=== PATIENT | female | born 1965 | race Caucasian/White ===

== ENCOUNTER 2021-03-30 10:43 | Outpatient (CLI) | payer BC, SELFPAY ==
--- NOTE | ~2021-03-30 | XR_ITS ---
EXAMINATION: XR finger 1st RT min 2V EXAM DATE: 03/30/2021 12:11 INDICATION: No known recent injury provided at this time. Pain of the thumbs, right more than left. TECHNIQUE: Right thumb frontal, lateral and oblique projections obtained and reviewed. Correlation i s made to contralateral thumb same date. FINDINGS: There is minimal right interphalangeal and metacarpophalangeal joint primary osteoarthritis . There are no bony erosions identified. There are no acute fractures or dislocations identified. There is no subcutaneous gas. The soft tissue is unremarkable. There are no radiopaque foreign tay dies. 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 Reviewed, dictated and finalized at location B.
--- NOTE | ~2021-03-30 | XR_ITS ---
EXAMINATION: XR finger 1st LT min 2V EXAM DATE: 03/30/2021 12:11 INDICATION: No known recent injury provided at this time. Pain of the thumbs right more than left. TECHNIQUE: Left 1st finger frontal, lateral and oblique projections obtained and reviewed. Correlati on is made to contralateral thumb same date. FINDINGS: There are no bony erosions identified. There are no acute left 1st finger fractures or dis locations identified. There is no subcutaneous gas. The soft tissue is unremarkable. There are no radiopaque foreign bodies. There is minimal left 1st interphalangeal primary osteoarthritis. IMPRESSION: Minimal left 1st interphalangeal osteoarthritis. Reviewed, dictated and finalized at location B.
[2021-03-30 19:03] LABS: Hemoglobin 13.7 g/dL (12.0-15.0); Mean Corpuscular HGB Conc 30.4 g/dl (32-36); Mean Corpuscular Hemoglobin 27.7 pg (26-34); Mean Corpuscular Volume 90.9 fl (80-100); Mean Platelet Volume 9.5 fl (7.4-10.4); Platelet Count Result 357 k/mm3 (150-375); Red Blood Count 4.95 M/mm3 (4.2-5.4); Red Cell Distribution Width 13.7 % (11.5-14.5); White Blood Count 8.8 K/mm3 (4.5-10.0)
[2021-03-30 19:13] LABS: Alanine Aminotransferase 30 U/L (4-35); Albumin Level 4.3 g/dL (3.5-5.1); Alkaline Phosphatase 101 U/L (38-126); Anion Gap 9 mmol/L (8-16); Aspartate Amino Transferase 27 U/L (14-36); Bilirubin,Total 0.6 mg/dL (0.2-1.3); Blood Urea Nitrogen 13 mg/dL (7-17); Calcium 9.5 mg/dL (8.4-10.2); Carbon Dioxide 28 mmol/L (22-30); Chloride 100 mmol/L (98-107); Estimated Glomerular Filt Rate > 60; Glucose 137 mg/dL (65-110); Sodium 137 mmol/L (137-145)
[2021-03-30 19:56] LABS: Hemoglobin A1C 7.2 % (<5.7)
== END 2021-03-30 10:44 | disposition home or self-care (01) ==
LOC: ANHBWCLAB 10:48
PROVIDERS: PCP Family Medicine; Visit Provider Family Medicine
DX: M19.90 Unspecified osteoarthritis, unspecified site (principal); E66.3 Overweight; K21.9 Gastro-esophageal reflux disease without esophagitis; J45.909 Unspecified asthma, uncomplicated; T78.40XA Allergy, unspecified, initial encounter; M18.0 Bilateral primary osteoarthritis of first carpometacarpal joints
CPT/HCPCS: 36415; 73140; 80053; 82607; 83036; 85027

== ENCOUNTER 2021-04-06 10:39 | Outpatient (CLI) | payer BC, SELFPAY ==
[2021-04-06 20:02] LABS: Cholesterol 227 mg/dL (0-200); HDL Direct 48 mg/dL; Triglycerides 89 mg/dL (<150)
[2021-04-06 20:13] LABS: LDL Cholesterol Direct 137 mg/dL
[2021-04-06 21:12] LABS: Hemoglobin A1C 7.2 % (<5.7)
== END 2021-04-06 10:40 | disposition home or self-care (01) ==
LOC: ANHBWCLAB 10:40
PROVIDERS: PCP Family Medicine; Visit Provider Family Medicine
DX: R73.09 Other abnormal glucose (principal); E66.3 Overweight; J45.909 Unspecified asthma, uncomplicated; K21.9 Gastro-esophageal reflux disease without esophagitis; M19.90 Unspecified osteoarthritis, unspecified site; T78.40XA Allergy, unspecified, initial encounter; Z76.89 Persons encountering health services in other specified circumstances
CPT/HCPCS: 36415; 80061; 83036

== ENCOUNTER 2021-07-07 09:13 | Outpatient (CLI) | payer BC, SELFPAY ==
[2021-07-07 19:08] LABS: Creatinine Urine 29.1 mg/dL
[2021-07-07 19:18] LABS: MALB Creatinine Ratio < 20.6 mg/g (0-30); Microalbumin Urine Random < 6.0 mg/L (0-16.7)
[2021-07-07 21:17] LABS: Hemoglobin A1C 6.3 % (<5.7)
== END 2021-07-07 09:14 | disposition home or self-care (01) ==
LOC: ANHBWCLAB 09:14
PROVIDERS: PCP Family Medicine; Visit Provider Family Medicine
DX: E11.9 Type 2 diabetes mellitus without complications (principal)
CPT/HCPCS: 36415; 82043; 83036

== ENCOUNTER 2021-07-07 10:30 | Outpatient (RCR) | payer BC, SELFPAY ==
[2021-05-17 11:09] VITALS: BMI 41.5
[2021-05-17 11:11] VITALS: BMI 41.5
== END 2021-08-05 11:18 | disposition home or self-care (01) ==
LOC: ANHDMC 10:30
PROVIDERS: PCP Family Medicine; Visit Provider Family Medicine
DX: E11.9 Type 2 diabetes mellitus without complications (principal); Z71.3 Dietary counseling and surveillance; Z71.89 Other specified counseling
CPT/HCPCS: 97804; G0108

== ENCOUNTER 2021-08-04 09:45 | Outpatient (CLI) | payer BC, SELFPAY | END 2021-08-04 09:46 | disposition home or self-care (01) | LOC: ANHBWCLAB 09:47 | PROVIDERS: PCP Family Medicine; Visit Provider Obstetrics & Gynecology | DX: N92.0 Excessive and frequent menstruation with regular cycle (principal) | CPT/HCPCS: 36415; 84443 ==

== ENCOUNTER 2021-08-12 09:27 | Outpatient (CLI) | payer BC, SELFPAY ==
--- NOTE | ~2021-08-12 | US_ITS ---
EXAMINATION: US pelvic complete w TV EXAM DATE: 08/12/2021 10:23 INDICATION: N92.6 - Irregular menstruation, unspecified. TECHNIQUE: Pelvic transabdominal and transvaginal sonogram was performed. There are multiple graysca le and Doppler images available for interpretation. There is no prior study for comparison. FINDINGS: Uterus measures 16.7 x 11.3 x 10.1 cm, with a large hypoechoic mass demonstrating internal vascularity, measuring 8.7 x 9.0 x 6.8 cm. This appears focal and could be a large centrally positio radhika fibroid, but is also obscuring the endometrium and endometrial polyp or malignancy not excludable . Several nabothian cysts noted. There is no free pelvic fluid. Right adnexa: The ovary is not identified. There is no adnexal mass. Left adnexa: The ovary is not identified. There is no adnexal mass. IMPRESSION: Enlarged uterus with central hypoechoic mass which could be submucosal or pedunculated fi broid within the endometrial cavity, or possibly endometrial histology such as large polyp or endomet rial cancer. Consider MRI pelvis with and without contrast for further evaluation. Reviewed, dictated and finalized at location A. URES EDITOR IMPRESSION: Enlarged uterus with central hypoechoic mass which could be submuco kamron or pedunculated fibroid within the endometrial cavity, or possibly endometr ial histology such as large polyp or endometrial cancer. Consider MRI pelvis wi th and without contrast for further evaluation.
== END 2021-08-12 09:28 | disposition home or self-care (01) ==
PROVIDERS: PCP Family Medicine; Visit Provider Obstetrics & Gynecology
DX: N92.0 Excessive and frequent menstruation with regular cycle (principal); R93.89 Abnormal findings on diagnostic imaging of other specified body structures
CPT/HCPCS: 76830; 76856

== ENCOUNTER 2021-09-08 12:10 | Outpatient (CLI) | payer BC, SELFPAY ==
[2021-09-08 12:45] LABS: Anion Gap 6 mmol/L (8-16); Blood Urea Nitrogen 11 mg/dL (7-17); Calcium 9.3 mg/dL (8.4-10.2); Carbon Dioxide 30 mmol/L (22-30); Chloride 100 mmol/L (98-107); Estimated Glomerular Filt Rate > 60; Glucose 108 mg/dL (65-110); Potassium 3.2 mmol/L (3.4-5.0); Sodium 136 mmol/L (137-145)
== END 2021-09-08 12:11 | disposition home or self-care (01) ==
LOC: ANHSURGERY 12:16
PROVIDERS: Anesthesiology; PCP Family Medicine; Visit Provider Obstetrics & Gynecology
DX: E11.9 Type 2 diabetes mellitus without complications (principal)
CPT/HCPCS: 36415; 80048

== ENCOUNTER 2021-09-12 00:59 | Day surgery (SDC) | payer BC, SELFPAY ==
[2021-09-02 09:30] VITALS: BMI 36.6
--- NOTE | 2021-09-02 09:42 | PC.NURSE ---
Addendum entered by Ibis Umanzor RN 09/02/21 09:49: PT TO CHECK WITH DR. CALDERA REGARDING ASPIRIN. Original Note: Report to the Outpatient Waiting Room, entrance under the green pavilion located off [facility], at time 11:00 on date 09/12/21. OR Time: 1:00. - You will be asked a series of questions to screen for COVID 19 for your protection. - A mask is required within the hospital. - No visitors are allowed at this time. Preoperative COVID Testing Requirements: No COVID Test needed if: (proof is required; if not received patient will have Rapid Test prior to entry) - Patient has received COVID Vaccine at least 14 days prior to procedure date or - Patient has positive COVID test result within last 90 days of surgery date. COVID Test needed if above criteria is not met Patients may have clear liquids (water, carbonated beverages, clear teas, apple juice) until 3 hours prior to surgery (10:00) with a maximum of 20 ounces. - No food from midnight until time of surgery Take the following medications with a SIP of water the morning of surgery: ALLOPURINOL, INHALER, LOESTRIN Medications to discontinue per physician: VITAMINS/SUPPLEMENTS Date to take last dose: 09/08/21 Please no make-up, nail kyrgyz, hairspray, perfume, deodorant, or body powder the day of surgery. No jewelry (including any body piercings) or valuables the day of surgery, leave them at home. Please take a shower or bath the night before, or the morning of, surgery with an antibacterial soap. Wear comfortable, loose fitting clothing. - Jewelry must be removed prior to entering the operating room. Rings and piercings that are not removed may be cut off. - The hospital will not accept responsibility for valuables. - Please leave all valuables, including medications, at home the day of surgery. If you are going home after surgery, a licensed route delivery service driver must drive you home. - NO public transportation without another adult. - We recommend that an adult stay with you for 24 hours following discharge. - We also recommend that you do not drive, make important decision, drink alcoholic beverages, or take any drugs that were not prescribed by your health care provider for at least 24 hours after your discharge time. Follow any additional instructions given to you from your surgeon. Telephone instructions given to FELICITAS YATES and asked if any additional questions and then verbalized understanding. Patient advised to call surgeon office or pre surgery nurse liaison [phone] if any additional questions.
--- NOTE | 2021-09-12 08:24 | PM.IMHP ---
H&P: HPI History of Present Illness Date/Time: 09/12/21 08:24 55 y/o with bleeding monthly X 10-14 days. In office endometrial biopsy was mostly blood and no endeomtrial tissue, so she's coming in for D&C/hysteroscopy for endometrial evaluation Chief Complaint: menorrhagia, uterine mass Review of Systems Review of Systems: All systems reviewed & are unremarkable except as noted in HPI and below PMFSH Past Medical History Medical History Asthma Elective x1 GERD (gastroesophageal reflux disease) Gout Type 2 diabetes mellitus Surgical History Surgical History History of endometrial ablation 2014 History of hysteroscopy 2013 History of neck surgery 2005 Family History Family History Father Malignant neoplasm of prostate Diabetes mellitus Hypertension Heart disease Mother Asthma Carcinoma of colon Hypertension Heart disease Thyroid disorder Other Anxiety and depression sister Social History Social History Smoking status: Never smoker Alcohol intake: never Alcohol use details: rare Substance use: never Substance use type: does not use Living arrangements: with family Gender identity (if verbalized by the patient): Female Sexual Orientation (if Verbalized by the Patient): Straight or Heterosexual Spiritual care concerns: No Agree to blood products: Yes Meds Home Medications and Allergies Home Medications Medication Instructions Recorded Confirmed Type apple cider vinegar 300 mg tablet 300 mg PO DAILY tablet 03/30/21 09/02/21 History aspirin 81 mg tablet,delayed 81 mg PO DAILY 03/30/21 09/02/21 History release hydrochlorothiazide 25 mg tablet 25 mg PO DAILY #90 tablet 03/30/21 09/02/21 Rx omega-3 fatty acids 1,000 mg 1,000 mg PO DAILY 03/30/21 09/02/21 History capsule omeprazole 20 mg capsule,delayed 20 mg PO DAILY 03/30/21 09/02/21 History release fluticasone propionate 44 2 puff INHALATION BID g 04/06/21 09/02/21 History mcg/actuation HFA aerosol inhaler Ozempic 0.25 mg SUBCUT WEEKLY #3 ml NS 07/21/21 09/02/21 Rx Lo Loestrin Fe 1 mg-10 mcg (24)/10 1 tablet PO DAILY #84 tablet NS 08/04/21 09/02/21 Rx mcg (2) tablet allopurinol 100 mg tablet 100 mg PO DAILY #90 tablet 09/05/21 Rx Allergies Allergy/AdvReac Type Severity Reaction Status Date / Time No Known Allergies Allergy Verified 09/02/21 09:27 Exam Const: General: healthy appearing, no acute distress, alert and awake Resp: Auscultation: clear to auscultation bilaterally Cardio: Rate: regular rate Rhythm: regular rhythm GI: Inspection: non-distended GI Palp: Yes Soft to palpation and No Tenderness to palpation present (GI) : Bimanual exam- vagina & uterus: non-tender, enlarged and soft Bimanual Exam- Adnexa, other: normal adnexae, no masses and No adnexal tenderness Extrem: General: no pedal edema and no calf tenderness Psych: Mental Status: mental status grossly normal Assessment and Plan Assessment and plan (1) Menorrhagia: Code(s): N92.0 - Excessive and frequent menstruation with regular cycle Status: Acute Assessment and Plan: She opted and signed consent for D&C/hysteroscopy after risks, benefits, complications, and alternatives discussed. She expressed understanding and wishes to proceed (2) Uterine mass: Code(s): N85.8 - Other specified noninflammatory disorders of uterus Status: Acute
[2021-09-12 11:27] VITALS: BP 152/85; PULSE 73; RESP 18; TEMP 37.3; O2SAT 100
[2021-09-12] MEDS: ACETAMINOPHEN 500 MG TABLET 1000 MG PO (11:43)
[2021-09-12 11:45] LABS: Glucose Point of Care 115 mg/dl (65-105)
[2021-09-12] MEDS: LACTATED RINGERS 1,000 ML 30 ML IV CONT (11:45)
--- NOTE | 2021-09-12 12:01 | WPDHPUPDATE1 ---
History and Physical Update Update Date/Time: 09/12/21 12:01 History and Physical has been reviewed, including an updated exam of the patient. There are NO changes in the patient's condition. Risks, benefits, and alternatives have been discussed and questions answered. Patient agrees to proceed with procedure.
--- NOTE | 2021-09-12 12:09 | WPDANESEPPF ---
Anes - Initial Pre Proc Eval Procedure: Operation Date: 09/12/21 13:00 Proposed Procedures p Hysteroscopy Dilation and Curettage - Rosa Elena Masterson MD Date/Time: 09/12/21 12:09 Surgeon: Rosa Elena Masterson MD Pre Op Diagnosis: menorrhagia, uterine mass Patient Data Age: 55 Gender: F Height: 1.75 m Weight: 112.5 kg Last Vital Signs Temp 37.3 C 09/12/21 11:27 Pulse 73 09/12/21 11:27 Resp 18 09/12/21 11:27 BP 152/85 H 09/12/21 11:27 Pulse Ox 100 09/12/21 11:27 Allergies Allergy/AdvReac Type Severity Reaction Status Date / Time No Known Allergies Allergy Verified 09/12/21 11:26 Home Medications Medication Instructions Recorded Confirmed Type apple cider vinegar 300 mg tablet 300 mg PO DAILY tablet 03/30/21 09/12/21 History aspirin 81 mg tablet,delayed 81 mg PO DAILY 03/30/21 09/12/21 History release hydrochlorothiazide 25 mg tablet 25 mg PO DAILY #90 tablet 03/30/21 09/12/21 Rx omega-3 fatty acids 1,000 mg 1,000 mg PO DAILY 03/30/21 09/12/21 History capsule omeprazole 20 mg capsule,delayed 20 mg PO DAILY 03/30/21 09/12/21 History release fluticasone propionate 44 2 puff INHALATION BID g 04/06/21 09/12/21 History mcg/actuation HFA aerosol inhaler Ozempic 0.25 mg SUBCUT WEEKLY #3 ml NS 07/21/21 09/12/21 Rx Lo Loestrin Fe 1 mg-10 mcg (24)/10 1 tablet PO DAILY #84 tablet NS 08/04/21 09/12/21 Rx mcg (2) tablet allopurinol 100 mg tablet 100 mg PO DAILY #90 tablet 09/05/21 09/12/21 Rx Laboratory Tests 09/12/21 11:40 POC Capillary Glucose 115 mg/dl H mg/dl (65-105) Patient hx anesthesia problems: none Family hx anesthesia problems: none Results Review: All pre-operative results and documents have been reviewed as part of the pre-operative evaluation. [facility] Past Medical History Medical History Asthma Elective x1 GERD (gastroesophageal reflux disease) Gout Type 2 diabetes mellitus Surgical History Surgical History History of endometrial ablation 2014 History of hysteroscopy 2014 History of neck surgery 2006 Family History Family History Father Malignant neoplasm of prostate Diabetes mellitus Hypertension Heart disease Mother Asthma Carcinoma of colon Hypertension Heart disease Thyroid disorder Other Anxiety and depression sister Social History Social History Smoking status: Never smoker Alcohol intake: never Alcohol use details: rare Substance use: never Substance use type: does not use Living arrangements: with family Gender identity (if verbalized by the patient): Female Sexual Orientation (if Verbalized by the Patient): Straight or Heterosexual Spiritual care concerns: No Agree to blood products: Yes Anes - Eval Final PreProcedure Day of Procedure 09/12/21 12:09 Patient weight: obese Heart: regular rate and rhythm Airway: Mallampati scale class II Neurological: alert and oriented Last oral intake: >/= 8 hours ASA classification: III Emergent: no Anesthetic plan: proceed Anesthesia type and monitoring: general GIVS and standard monitoring Results Review: All pre-operative results and documents have been reviewed as part of the pre-operative evaluation. Informed Consent: The patient's anesthetic plan and its attendant risks and benefits were discussed with the patient/family/POA. Questions were solicited and answers provided to the satisfaction of the patient/family/POA.
--- NOTE | 2021-09-12 12:38 | P.OP_ITS ---
Procedure Note - Detailed Date of Procedure 09/12/21 Pre-op Diagnosis menorrhagia, uterine mass Post-op Diagnosis same Procedure Performed D&C, hysteroscopy Surgeon Rosa Elnea Masterson MD Anesthesia MAC Indications Heavy periods and uterine mass seen on ultrasound. Endometrial biopsy in office inadequate Findings enlarged endometrial cavity with prominent vascularity and tunneling. No polyp or fibroid visible Description of Procedure She was taken to the operating room where she was sedated and placed in the dorsal lithotomy position. A speculum was placed in the vagina. A paracervical block was done with 1% lidocaine. The anterior lip of the cervix was grasped with a single-tooth tenaculum. The uterus sounded to 12 cm. The cervix was dilated to allow passage of the hysteroscope. The endometrial cavity was enlarged with prominent vascularity and multiple tunnels or channels. No obvious polyp or fibroid was visible. A sharp curettage was then performed and the curettings sent for pathologic evaluation. The tenaculum was removed. The left tenaculum site was bleeding slightly. Pressure was held with ring forceps until excellent hemostasis was assured. All instruments were removed from the v agina. She tolerated the procedure well. Sponge, lap, and instrument counts were correct x2. She was taken to the recovery room in stable condition. Estimated Blood Loss 25 Drains No Packing No Pathology yes Complications No immediate complications Condition stable Disposition PACU
[2021-09-12] MEDS: KETOROLAC 30 MG/ML VIAL (*BKC) IV PUSH (13:05)
[2021-09-12 13:26] VITALS: BP 138/66; PULSE 80; RESP 20
[2021-09-12 14:00] VITALS: BP 134/72; PULSE 66; RESP 14
== END 2021-09-12 14:38 | disposition home or self-care (01) ==
PROVIDERS: PCP Family Medicine; Visit Provider Obstetrics & Gynecology
PROC: 0U5B8ZZ Destruction of Endometrium, Via Natural or Artificial Opening Endoscopic (ICD-10-PCS; CPT 58563; principal; 2021-09-12 13:00)
DX: N92.0 Excessive and frequent menstruation with regular cycle (principal); N85.00 Endometrial hyperplasia, unspecified; K21.9 Gastro-esophageal reflux disease without esophagitis; J45.909 Unspecified asthma, uncomplicated; E11.9 Type 2 diabetes mellitus without complications; M10.9 Gout, unspecified; Z79.82 Long term (current) use of aspirin; E66.9 Obesity, unspecified; Z68.36 Body mass index [BMI] 36.0-36.9, adult
CPT/HCPCS: 58558; 82948; 88305; A9270; J1885; J2250; J2704; J3010; J7030; J7120

== ENCOUNTER 2021-10-06 09:32 | Outpatient (CLI) | payer BC, SELFPAY ==
[2021-10-06 19:30] LABS: Hematocrit 42.9 % (37.0-47.0); Hemoglobin 12.8 g/dL (12.0-15.0); Mean Corpuscular HGB Conc 29.8 g/dl (32-36); Mean Corpuscular Hemoglobin 26.3 pg (26-34); Mean Corpuscular Volume 88.3 fl (80-100); Mean Platelet Volume 9.5 fl (7.4-10.4); Platelet Count Result 375 k/mm3 (150-375); Red Blood Count 4.86 M/mm3 (4.2-5.4); Red Cell Distribution Width 13.9 % (11.5-14.5); White Blood Count 8.6 K/mm3 (4.5-10.0)
[2021-10-06 19:42] LABS: Alanine Aminotransferase 17 U/L (4-35); Alkaline Phosphatase 90 U/L (38-126); Anion Gap 7 mmol/L (8-16); Aspartate Amino Transferase 19 U/L (14-36); Bilirubin,Total 0.5 mg/dL (0.2-1.3); Blood Urea Nitrogen 11 mg/dL (7-17); Calcium 8.9 mg/dL (8.4-10.2); Carbon Dioxide 30 mmol/L (22-30); Chloride 99 mmol/L (98-107); Cholesterol 215 mg/dL (0-200); Estimated Glomerular Filt Rate > 60; Glucose 128 mg/dL (65-110); HDL Direct 43 mg/dL; Potassium 3.3 mmol/L (3.4-5.0); Sodium 136 mmol/L (137-145); Triglycerides 73 mg/dL (<150)
[2021-10-06 19:53] LABS: LDL Cholesterol Direct 158 mg/dL
[2021-10-07 13:01] LABS: Hemoglobin A1C 5.7 % (<5.7)
== END 2021-10-06 09:33 | disposition home or self-care (01) ==
LOC: ANHBWCLAB 09:33
PROVIDERS: PCP Family Medicine; Visit Provider Family Medicine
DX: E11.9 Type 2 diabetes mellitus without complications (principal); E66.9 Obesity, unspecified
CPT/HCPCS: 36415; 80053; 80061; 83036; 85027

== ENCOUNTER 2021-10-11 13:47 | Outpatient (CLI) | payer BC, SELFPAY ==
[2021-10-11 19:07] LABS: Anion Gap 8 mmol/L (8-16); Blood Urea Nitrogen 14 mg/dL (7-17); Calcium 9.1 mg/dL (8.4-10.2); Carbon Dioxide 29 mmol/L (22-30); Chloride 100 mmol/L (98-107); Estimated Glomerular Filt Rate > 60; Glucose 148 mg/dL (65-110); Potassium 3.4 mmol/L (3.4-5.0); Sodium 137 mmol/L (137-145)
== END 2021-10-11 13:48 | disposition home or self-care (01) ==
PROVIDERS: PCP Family Medicine; Visit Provider Family Medicine
DX: M10.9 Gout, unspecified (principal); E87.6 Hypokalemia
CPT/HCPCS: 36415; 80048; 84550

== ENCOUNTER 2021-10-24 10:05 | Outpatient (CLI) | payer BC, SELFPAY ==
--- NOTE | 2021-10-24 10:00 | ECG_ITS ---
Measurements Intervals [place] Rate: 79 P: 30 ID: [id number] QRS: 2 QRSD: 98 T: 35 QT: 364 QTc: 420 Interpretive Statements SINUS RHYTHM LOW VOLTAGE QRS IN PRECORDIAL LEADS BORDERLINE ECG NO PREVIOUS ECG AVAILABLE FOR COMPARISON Electronically Signed On 10-24-2021 12:28:49 CDT by Milton Alberts M.D.
== END 2021-10-24 10:06 | disposition home or self-care (01) ==
LOC: ANHSURGERY 10:09
PROVIDERS: PCP Family Medicine; Visit Provider Obstetrics & Gynecology
DX: E11.9 Type 2 diabetes mellitus without complications (principal); N92.0 Excessive and frequent menstruation with regular cycle
CPT/HCPCS: 36415; 86850; 86900; 86901; 93005

== ENCOUNTER 2021-11-20 07:22 | Outpatient (CLI) | payer BC, SELFPAY ==
--- NOTE | ~2021-11-20 | MR_ITS ---
EXAMINATION: MR pelvis wo/w con DATE: 11/20/2021 08:55 INDICATION: Benign neoplasm of connective and other soft tissues. TECHNIQUE: Magnetic resonance imaging (MRI) of the pelvis was performed without and with 20 mL MultiH ance intravenous contrast. COMPARISON: Pelvis ultrasound 08/12/2021 FINDINGS: There is a 10.0 x 8.9 x 9.7 cm submucosal mass in the uterus, consistent with a fibroid. The endometr ial complex is normal in thickness and measures 3 mm. There are nabothian cysts in the cervix. The ov booker are normal. There are no pathologically enlarged lymph nodes. There is no free intraperitoneal fluid. There is moderate lower lumbar spondylosis. IMPRESSION: 1. 10.0 cm submucosal uterine fibroid. Reviewed, dictated and finalized at location A.
[2021-11-20 08:05] LABS: Estimated Glomerular Filt Rate > 60
== END 2021-11-20 07:23 | disposition home or self-care (01) ==
LOC: ANHIMG 07:24
PROVIDERS: PCP Family Medicine; Visit Provider Obstetrics & Gynecology
DX: D25.9 Leiomyoma of uterus, unspecified (principal)
CPT/HCPCS: 72197; A9577

== ENCOUNTER 2021-12-07 01:00 | Day surgery (SDC) | payer BC, SELFPAY ==
[2021-10-20 14:20] VITALS: BMI 36.4
--- NOTE | 2021-10-20 14:27 | PC.NURSE ---
Report to the Outpatient Waiting Room, entrance under the green pavilion located off [facility], at time 10:00 on date 10/31/21. OR Time: 12:00. - You and your visitor will be asked a series of questions to screen for COVID 19 for your protection. - A mask is required within the hospital. One visitor will be allowed to accompany the patient into the hospital. Patients visitor will be instructed to remain with patient at all times or leave the building. We will allow the visitor to come back to the postoperative area when patient is ready. Preoperative COVID Testing Requirements: No COVID Test needed if: (proof is required; if not received patient will have Rapid Test prior to entry) - Patient has received COVID Vaccine at least 14 days prior to procedure date or - Patient has positive COVID test result within last 90 days of surgery date. COVID Test needed if above criteria is not met Patients may have clear liquids (water, carbonated beverages, clear teas, apple juice) until 3 hours prior to surgery (9:00) with a maximum of 20 ounces. - No food from midnight until time of surgery Take the following medications with a SIP of water the morning of surgery: NONE Medications to discontinue per physician: VITAMINS/SUPPLEMENTS Date to take last dose: 10/27/[address] CALDERA Please no make-up, nail greek, hairspray, perfume, deodorant, or body powder the day of surgery. No jewelry (including any body piercings) or valuables the day of surgery, leave them at home. Please take a shower or bath the night before, or the morning of, surgery with an antibacterial soap. Wear comfortable, loose fitting clothing. - Jewelry must be removed prior to entering the operating room. Rings and piercings that are not removed may be cut off. - The hospital will not accept responsibility for valuables. - Please leave all valuables, including medications, at home the day of surgery. If you are going home after surgery, a licensed hazmat cdl driver must drive you home. - NO public transportation without another adult. - We recommend that an adult stay with you for 24 hours following discharge. - We also recommend that you do not drive, make important decision, drink alcoholic beverages, or take any drugs that were not prescribed by your health care provider for at least 24 hours after your discharge time. Follow any additional instructions given to you from your surgeon. Telephone instructions given to FELICITAS YATES and asked if any additional questions and then verbalized understanding. Patient advised to call surgeon office or pre surgery nurse liaison [phone] if any additional questions.
--- NOTE | 2021-10-27 12:46 | PM.IMHP ---
H&P: HPI History of Present Illness Date/Time: 10/27/21 12:46 56 y/o with periods Q1-2 months lasting 10-14 days. OCP did not help. She had D&C/hysteroscopy since endometrial biopsy was unsuccessful in office. Benign tissue on D&C. Chief Complaint: Menorrhagia, fibroids Review of Systems Review of Systems: All systems reviewed & are unremarkable except as noted in HPI and below PMFSH Past Medical History Medical History Asthma Elective x1 GERD (gastroesophageal reflux disease) Gout Type 2 diabetes mellitus Surgical History Surgical History History of endometrial ablation 2013 History of hysteroscopy 2013 History of neck surgery 2005 Family History Family History Father Malignant neoplasm of prostate Diabetes mellitus Hypertension Heart disease Mother Asthma Carcinoma of colon Hypertension Heart disease Thyroid disorder Other Anxiety and depression sister Social History Social History Smoking status: Never smoker Alcohol intake: never Substance use: never Substance use type: does not use Gender identity (if verbalized by the patient): Female Sexual Orientation (if Verbalized by the Patient): Straight or Heterosexual Spiritual care concerns: No Agree to blood products: Yes Meds Home Medications and Allergies Home Medications Medication Instructions Recorded Confirmed Type apple cider vinegar 300 mg tablet 300 mg PO DAILY tablet 03/30/21 10/20/21 History aspirin 81 mg tablet,delayed 81 mg PO DAILY 03/30/21 10/20/21 History release hydrochlorothiazide 25 mg tablet 25 mg PO DAILY #90 tablet 03/30/21 10/20/21 Rx omega-3 fatty acids 1,000 mg 1,000 mg PO DAILY 03/30/21 10/20/21 History capsule omeprazole 20 mg capsule,delayed 20 mg PO DAILY 03/30/21 10/20/21 History release allopurinol 100 mg tablet 100 mg PO DAILY #90 tablet 09/05/21 10/20/21 Rx ibuprofen 600 mg PO Q6H PRN #60 tablet 09/12/21 10/20/21 Rx Ozempic 0.5 mg SUBCUT WEEKLY #3 ml NS 10/11/21 10/20/21 Rx norethindrone 1 mg-ethinyl 1 tablet PO DAILY #28 tablet 10/11/21 10/20/21 Rx estradiol 10 mcg (24)-iron 10 mcg(2) tablet Allergies Allergy/AdvReac Type Severity Reaction Status Date / Time No Known Allergies Allergy Verified 10/20/21 14:17 Exam Const: General: healthy appearing, no acute distress, alert and awake Resp: Auscultation: clear to auscultation bilaterally Cardio: Rate: regular rate Rhythm: regular rhythm GI: Inspection: non-distended GI Palp: Yes Soft to palpation and No Tenderness to palpation present (GI) : Bimanual exam- vagina & uterus: uterine mobility normal, non-tender, enlarged and soft Bimanual Exam- Adnexa, other: normal adnexae, no masses and No adnexal tenderness Extrem: General: no pedal edema and no calf tenderness Psych: Mental Status: mental status grossly normal Assessment and Plan Assessment and plan (1) Menorrhagia: Code(s): N92.0 - Excessive and frequent menstruation with regular cycle Status: Acute Assessment and Plan: She opted and signed consent for KELSI/BSO after risks, benefits, complications, and alternatives discussed. Her uterus is too large for vaginal or laparoscopic approach. She expressed understanding and wishes to proceed (2) Leiomyoma: Code(s): D21.9 - Benign neoplasm of connective and other soft tissue, unspecified Status: Acute
--- NOTE | 2021-11-29 14:09 | PC.NURSE ---
PT STATES NO CHANGE IN HEALTH SINCE INTERVIEW ON 10/20/21. MEDS REVIEWED. PREOP INSTRUCTIONS GIVEN.
--- NOTE | 2021-11-29 14:10 | PC.NURSE ---
Report to the Outpatient Waiting Room, entrance under the green pavilion located off [facility], at time _0600_ on date _12/07/21_. OR Time: 0730_. - You and your visitor will be asked a series of questions to screen for COVID 19 for your protection. - Only one visitor is allowed at this time. - The patient visitor is requested to leave or wait in car when not with patient. - A mask is required within the hospital. Patients may have clear liquids (water, carbonated beverages, clear teas, apple juice) until 3 hours prior to surgery with a maximum of 20 ounces. - No food from midnight until time of surgery - Take the following medications with a SIP of water the morning of surgery: _ALLOPURINOL IF DESIRED Medications to discontinue per physician _STOP ASA PER DR. PALMA'S INSTRUCTION; STOP VITAMINS/SUPPLEMENTS ON 12/04/21 Date to take last dose Please no make-up, nail latvian, hairspray, perfume, deodorant, or body powder the day of surgery. No jewelry (including any body piercings) or valuables the day of surgery, leave them at home. Please take a shower or bath the night before, or the morning of, surgery with an antibacterial soap. Wear comfortable, loose fitting clothing - Jewelry must be removed prior to entering the operating room. Rings and piercings that are not removed may be cut off. - The hospital will not accept responsibility for valuables. - Please leave all valuables, including medications, at home the day of surgery. If you are going home after surgery, a licensed local company hazmat driver must drive you home. - NO public transportation without another adult. - We recommend that an adult stay with you for 24 hours following discharge. - We also recommend that you do not drive, make important decision, drink alcoholic beverages, or take any drugs that were not prescribed by your health care provider for at least 24 hours after your discharge time. Follow any additional instructions given to you from your surgeon. If you or anyone in your household have experienced Covid symptoms in the past week, please notify your surgeon or the nurse liaison at the phone number below for possible testing. Telephone instructions given to __JANET and asked if any additional questions and then verbalized understanding. Patient advised to call surgeon office or pre surgery nurse liaison [phone] if any additional questions.
--- NOTE | 2021-12-06 21:39 | PM.IMHP ---
H&P: HPI History of Present Illness Date/Time: 12/06/21 21:39 Patient with a history of abnormal uterine bleeding. She has a history of having an endometrial ablation 09/2013 and had significant improvement of periods for a few years but never stopped. Periods had been heavier and longer, Q 1-2 months (only skips occasionally) lasting 10-14 days for since . She has 1-2 very heavy days each cycle passing large clots and occasional flooding. Cramping on period but no other pelvic pain. On exam her uterus was enlarged, she had an office endometrial biopsy inadequate. She had subsequent D and C hysteroscopy which showed no endometrial hyperplasia or cancer. She was tried on a low dose control pill which did not help her symptoms. She had an ultrasound which showed possible fibroid vascular and the subsequent endometrial biopsy was performed then and was benign as stated previously. She does continue to have some irregular bleeding. She did have a recent MRI which showed 10.0 x 8.9 x 9.7 cm submucosal mass in the uterus, consistent with a fibroid. The endometrial complex is normal in thickness and measures 3 mm. She was recommended for hysterectomy for the abnormal uterine bleeding. Discussed risk benefits of abdominal versus robotic assisted laparoscopic hysterectomy. She agreed to laparoscopic hysterectomy. Her type II DM controlled. No recent exacerbations with her asthma. Chief Complaint: Abnormal uterine bleeding Review of Systems Review of Systems: All systems reviewed & are unremarkable except as noted in HPI and below Cardiovascular: Cardiovascular: Reports no additional cardiovascular complaints, Denies chest pain and Denies dyspnea Respiratory: Respiratory: Reports no additional respiratory complaints and Denies dyspnea Gastrointestinal: Gastrointestinal: Reports abdominal pain, Denies change in bowel habits, Denies diarrhea, Denies nausea and Denies vomiting Integumentary/Breasts: Skin/Breast: Reports system reviewed and no additional complaints, except as docu Neurologic: Reports system reviewed and no additional complaints, except as documented [facility] Past Medical History Medical History Asthma Elective x1 GERD (gastroesophageal reflux disease) Gout Type 2 diabetes mellitus Surgical History Surgical History History of endometrial ablation 2013 History of hysteroscopy 2013 History of neck surgery 2005 Family History Family History Father Malignant neoplasm of prostate Diabetes mellitus Hypertension Heart disease Mother Asthma Carcinoma of colon Hypertension Heart disease Thyroid disorder Other Anxiety and depression sister Social History Social History Smoking status: Never smoker Alcohol intake: current Substance use: never Substance use type: does not use Living arrangements: with family Gender identity (if verbalized by the patient): Female Sexual Orientation (if Verbalized by the Patient): Straight or Heterosexual Spiritual care concerns: No Agree to blood products: Yes Meds Home Medications and Allergies Home Medications Medication Instructions Recorded Confirmed Type apple cider vinegar 300 mg tablet 300 mg PO DAILY tablet 03/30/21 12/07/21 History aspirin 81 mg tablet,delayed 81 mg PO DAILY 03/30/21 12/07/21 History release hydrochlorothiazide 25 mg tablet 25 mg PO DAILY #90 tablet 03/30/21 12/07/21 Rx omega-3 fatty acids 1,000 mg 1,000 mg PO DAILY 03/30/21 12/07/21 History capsule omeprazole 20 mg capsule,delayed 20 mg PO DAILY 03/30/21 12/07/21 History release allopurinol 100 mg tablet 100 mg PO DAILY #90 tablet 09/05/21 12/07/21 Rx Ozempic 0.5 mg SUBCUT WEEKLY #3 ml NS 10/11/21 12/07/21 Rx Allergies Al
[2021-12-07] VITALS (8 sets, daily range): BP systolic 120–149; BP diastolic 66–84; PULSE 69–79; RESP 10–20; TEMP 36.3–37.3; O2SAT 98–100
[2021-12-07] MEDS: ACETAMINOPHEN 500 MG TABLET 1000 MG PO (06:31)
[2021-12-07] MEDS: LACTATED RINGERS 1,000 ML 30 ML IV CONT ×2 (06:33→11:07)
--- NOTE | 2021-12-07 06:58 | P.PNAN_ITS ---
Anes - Initial Pre Proc Eval Procedure: Operation Date: 12/07/21 07:30 Proposed Procedures p Robotic Total Hysterectomy - Js Moser MD Date/Time: 12/07/21 06:58 Surgeon: Js Moser MD Pre Op Diagnosis: leiomyoma Patient Data Age: 56 Gender: F Height: 1.75 m Weight: 112 kg Allergies Allergy/AdvReac Type Severity Reaction Status Date / Time No Known Allergies Allergy Verified 12/07/21 06:07 Home Medications Medication Instructions Recorded Confirmed Type apple cider vinegar 300 mg tablet 300 mg PO DAILY tablet 03/30/21 12/07/21 History aspirin 81 mg tablet,delayed 81 mg PO DAILY 03/30/21 12/07/21 History release hydrochlorothiazide 25 mg tablet 25 mg PO DAILY #90 tablet 03/30/21 12/07/21 Rx omega-3 fatty acids 1,000 mg 1,000 mg PO DAILY 03/30/21 12/07/21 History capsule omeprazole 20 mg capsule,delayed 20 mg PO DAILY 03/30/21 12/07/21 History release allopurinol 100 mg tablet 100 mg PO DAILY #90 tablet 09/05/21 12/07/21 Rx Ozempic 0.5 mg SUBCUT WEEKLY #3 ml NS 10/11/21 12/07/21 Rx Patient hx anesthesia problems: none Family hx anesthesia problems: none Results Review: All pre-operative results and documents have been reviewed as part of the pre-operative evaluation. [facility] Past Medical History Medical History Asthma Elective x1 GERD (gastroesophageal reflux disease) Gout Type 2 diabetes mellitus Surgical History Surgical History History of endometrial ablation 2014 History of hysteroscopy 2014 History of neck surgery 2005 Family History Family History Father Malignant neoplasm of prostate Diabetes mellitus Hypertension Heart disease Mother Asthma Carcinoma of colon Hypertension Heart disease Thyroid disorder Other Anxiety and depression sister Social History Social History Smoking status: Never smoker Alcohol intake: current Substance use: never Substance use type: does not use Living arrangements: with family Gender identity (if verbalized by the patient): Female Sexual Orientation (if Verbalized by the Patient): Straight or Heterosexual Spiritual care concerns: No Agree to blood products: Yes Anes - Eval Final PreProcedure Day of Procedure 12/07/21 06:58 Patient weight: obese Heart: regular rate and rhythm Lungs: clear to auscultation Airway: Mallampati scale class II Neurological: alert and oriented Last oral intake: >/= 8 hours ASA classification: III Emergent: no Anesthetic plan: proceed Anesthesia type and monitoring: general ETT and standard monitoring Results Review: All pre-operative results and documents have been reviewed as part of the pre-operative evaluation. Informed Consent: The patient's anesthetic plan and its attendant risks and benefits were discussed with the patient/family/POA. Questions were solicited and answers provided to the satisfaction of the patient/family/POA.
[2021-12-07 07:00] LABS: Glucose Point of Care 122 mg/dl (65-105)
[2021-12-07] MEDS: ENOXAPARIN 30 MG/0.3 ML SYRINGE SUB-Q (07:15)
--- NOTE | 2021-12-07 07:16 | WPDHPUPDATE1 ---
History and Physical Update Update Date/Time: 12/07/21 07:16 History and Physical has been reviewed, including an updated exam of the patient. There are NO changes in the patient's condition. Risks, benefits, and alternatives have been discussed and questions answered. Patient agrees to proceed with procedure.
[2021-12-07] MEDS: ceFAZolin 2 GM/D5W 50 ML 2 GM/50 ML BAG IVPB (07:30)
[2021-12-07] MEDS: BUPIVACAINE HCL 0.5% PF 30 ML VIAL INFILTRATE (08:11)
--- NOTE | 2021-12-07 10:57 | PM.OP ---
Procedure Note - Brief Procedure Note - Brief Date of procedure: 12/07/21 Pre-op diagnosis: leiomyoma Post-op diagnosis: Same Procedure performed: Robotic assisted laparoscopic hysterectomy with bilateral salpingo-oophorectomy. Anesthesia: GETA Surgeon: Js Moser MD Estimated blood loss (mL): 50 IV fluids (mL): 1,300 Urine output (mL): 100 Drains: No Packing: No Pathology: Yes (uterus with multiple fibroids in several segments, normal ovaries and fallopian tubes) Complications: No immediate complications Condition: Stable Disposition: Observation Findings: Uterus enlarged, diffusely multiple fibroid, normal fallopian tubes and ovaries
--- NOTE | 2021-12-07 11:25 | W.PM.PROC2 ---
Procedure Note - Detailed Date of Procedure 12/07/21 Pre-op Diagnosis leiomyoma Post-op Diagnosis Same Procedure Performed Robotic assisted laparoscopic hysterectomy with bilateral salpingo-oophorectomy. Surgeon Js Moser MD Manager Quantitative OR Anesthesia General Indications Abnormal uterine bleeding and enlarged uterus with large fibroid. Findings Uterus approximately 18 week size, multiple intramural fibroids, large posterior fibroid, normal ovaries and fallopian tubes. Description of Procedure After informed consent was obtained she was taken to the operating room and general endotracheal anesthesia was administered. She was placed in low lithotomy position. An exam under anesthesia was performed. Uterus mildly enlarged. Adnexa not palpable.She was and prepped and draped in sterile fashion. Tavares catheter placed in bladder. Attention was turned to the vagina speculum was inserted. Single-tooth tenaculum placed on anterior lip of the cervix the uterus sounded to 14 cm. The cervix was dilated to a 8 Taylor dilator. A size 12 uterine manipulator was inserted and secured. A size 3.5 colp cup was secured in the vagina. Then attention was turned to the abdomen with new sterile gloves. .25% marcaine injected subcutaneously. An incision was made horizontal 2 cm above the umbilicus. A veress needle was inserted into abdomen. Confirmation in abdomen obtained with normal free flow of fluid and normal peritoneal pressures. A Pneumoperitoneum of 15 mm per mercury was obtained. No abdominal or pelvic adhesions noted. A small incision was made approximately 6 cm lateral to the port on the left side of the port. A size 8mm robotic port was inserted under laparoscopic visualization into the abdomen on the left side. Prior to inserting the port marcaine was injected subcutaneously. The port was inserted under laparoscopic visualization. Attention was turned to the right side of abdomen and 6 lateral an 8 mm robotic port was inserted under laparoscopic visualization after .25% Marcaine injected subcutaneously. Attention was then turned superiorly and medial and .25% Marcaine injected and a ten mm front office medical assistant port inserted under laparoscopic visualization. The patient was placed in steep Trendelberg to the point that allowed the intestine to retract out of the cul de sac. The robotic arms and instruments were secured. Attention was then turned to the right round ligament which was ligated with the vessel sealer. The anterior leaf of the broad ligament was dissected anteriorly to the vesicouterine peritoneum. The right side of the bladder was dissected from the lower uterine segment and upper cervix. The right infundibulopelvic ligament was ligated with the vessel sealer. The posterior leaf of the broad ligament was further dissected. The uterine vessels on the right were skeletonized. The ascending uterine vessels on the right were cauterized. The uterine vessels were ligated. Attention was turned to the left round ligament which was ligated and the anterior leaf of the broad ligament was dissected anteriorly. The rest of the vesicouterine peritoneum was dissected off of the uterus. Once the bladder was dissected below the colp cup then the infundibulopelvic ligament was ligated with the vessel sealer. The posterior leaf of broad ligament dissected. The ascending uterine vessels cauterized. The uterine arteries were skeletonized. The uterine arteries on the left were ligated. The cardinal ligaments were ligated. This was done on both sides. The uterus was bivalved. A posterior colpotomy incision was made and this was carried around midway The uterus was then bivalved on cautery. The colpotomy incision was completed until the cervix was removed from vagina. Further bivalving of the uterus was performed. The two parts of the bivalved uterus were were further bivalved and the uterus and cervix and fallopian tubes and ovaries were removed from vagina in approximately
[2021-12-07 11:26] LABS: Glucose Point of Care 155 mg/dl (65-105)
[2021-12-07] MEDS: fentaNYL CITRATE INJ (*CRX) 100 MCG/2 ML VIAL 25 MCG IV PUSH ×4 (11:33→12:08)
[2021-12-07] MEDS: DEXTROSE 5%/LACTATED RINGERS 1,000 ML 125 ML IV CONT ×2 (13:18→20:56)
[2021-12-07] MEDS: SIMETHICONE 80 MG TAB.CHEW PO ×2 (13:20→17:00)
[2021-12-07] MEDS: KETOROLAC 30 MG/ML VIAL (*BKC) IV PUSH (13:20)
[2021-12-07] MEDS: HYDROcodone/acetaminophen (*CRX) 5-325 MG TABLET 1 TAB PO (13:26)
[2021-12-07] MEDS: HYDROcodone/acetaminophen (*CRX) 10-325 MG TABLET 1 TAB PO ×2 (17:00→20:54)
[2021-12-07] MEDS: PANTOPRAZOLE 40 MG TABLET PO (18:24)
[2021-12-08] MEDS: HYDROcodone/acetaminophen (*CRX) 10-325 MG TABLET 1 TAB PO ×3 (01:11→07:48)
[2021-12-08 03:30] VITALS: BP 119/76; PULSE 74; RESP 16; TEMP 36.8; O2SAT 100
[2021-12-08] MEDS: SIMETHICONE 80 MG TAB.CHEW PO ×3 (05:08→13:50)
[2021-12-08] MEDS: hydroCHLOROthiazide 25 MG TABLET PO (07:40)
[2021-12-08] MEDS: allopurinoL 100 MG TABLET PO (07:40)
[2021-12-08 07:50] VITALS: BP 106/64; PULSE 76; RESP 16; TEMP 37.3; O2SAT 100
[2021-12-08] MEDS: KETOROLAC 30 MG/ML VIAL (*BKC) IV PUSH (09:51)
--- NOTE | 2021-12-08 09:52 | WPDANESPN ---
Anes - Prog Note Post-Op Date/Time: 12/08/21 09:52 Cardiovascular status: normal Respiratory status: normal Airway patency: baseline Mental status: baseline Post-Op hydration status: normal Vital Signs: Last Vital Signs Temp 37.3 C 12/08/21 07:50 Pulse 76 12/08/21 07:50 Resp 16 12/08/21 07:50 BP 106/64 12/08/21 07:50 Pulse Ox 100 12/08/21 07:50 Pain Score (VAS): 2/10 I/O: Intake & Output 12/07/21 12/08/21 12/08/21 23:59 07:59 15:59 Intake Total 1954 300 Output Total 1000 875 Balance 954 -575 12/07/21 11:24 POC Capillary Glucose 155 H Post-procedural complaints: none Patient Feedback: Patient satisfied with anesthetic care.
--- NOTE | 2021-12-08 13:00 | PM.GYNPNOP ---
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 She is doing well. Awaiting flatus. Encourage ambulation. We will advance her diet. Anticipate she will be able to be discharged today. Postoperative Procedures: Procedures Operation Date: 12/07/21 07:30 Actual Procedure Side Surgeon p Robotic Assisted Laparoscopic Total Hysterectomy with Bilateral Salpingo-oophorectomy Bilateral Js Moser MD Time Spent With Patient Time: Total time spent is greater than 50% in coordination of care (as documented) at patient's floor/unit and/or counseling patient: Time with patient: less than 15 minutes NOTCHING MACHINE OPERATOR- PN:Subj Post-Op Subjective Date/time seen: 12/08/21 0815 She reports adequate pain control. She has set up in [facility]. She has walked to the restroom. She has not ambulated in the halls. She has not had regular food. The vertigo type symptoms are improving. She is tolerating liquids. She denies flatus. No chest pain no leg pain. Exam Const: General: no acute distress Eyes: General: appearance normal, both eyes and all related structures Resp: Effort & Inspection: normal respiratory effort Auscultation: clear to auscultation bilaterally Cardio: Rate: regular rate Rhythm: regular rhythm GI: Other: Positive bowel sounds. Incisions healing. Appropriate tenderness. Extrem: General: normal to inspection Other: Nontender. NOTCHING MACHINE OPERATOR - PN: Obj Data Vital Signs Vital Signs: Vital Signs - 24 hr 12/07/21 19:00 12/07/21 23:00 12/08/21 03:30 Temperature 99.1 F 98.4 F 98.2 F Pulse Rate 79 78 74 Respiratory Rate 16 16 16 Blood Pressure 141/80 H 135/76 119/76 Pulse Oximetry 98 100 100 12/08/21 07:50 Temperature 99.2 F Pulse Rate 76 Respiratory Rate 16 Blood Pressure 106/64 Pulse Oximetry 100 Intake/Output Intake/Output: Intake & Output 12/05/21 12/06/21 12/07/21 12/08/21 23:59 23:59 23:59 23:59 Intake Total 3354 700 Output Total 3909 825 Balance 1089 -830 Meds/Results Medications: Active Medications Generic Name Dose Route Start Last Admin Trade Name Freq PRN Reason Stop Dose Admin Hydrocodone Bitart/Acetaminophen 1 tab 12/07/21 10:49 12/07/21 13:26 Hydrocodone/Acetaminophen (*Crx) 5-325 Mg Tablet PO 1 tab Q3H PRN Administration Pain Rated 5 or Less Hydrocodone Bitart/Acetaminophen 1 tab 12/07/21 10:49 12/08/21 07:48 Hydrocodone/Acetaminophen (*Crx) 10-325 Mg Tablet PO 1 tab Q3H PRN Administration Pain Rated 6 or Greater Allopurinol 100 mg 12/08/21 09:00 12/08/21 07:40 Allopurinol 100 Mg Tablet PO 100 mg DAILY MANUELA Administration Hydrochlorothiazide 25 mg 12/08/21 09:00 12/08/21 07:40 Hydrochlorothiazide 25 Mg Tablet PO 25 mg DAILY MANUELA Administration Dextrose/Lactated Ringer's 1,000 mls @ 125 mls/hr 12/07/21 10:50 12/08/21 04:51 Dextrose 5%/Lactated Ringers IV CONT Not Given .Q8H [facility] Ketorolac Tromethamine 30 mg 12/07/21 10:49 12/08/21 09:51 Ketorolac 30 Mg/Ml Vial (*Bkc) IV PUSH 12/12/21 10:48 30 mg Q6H PRN Administration Pain Rated 4-6 Morphine Sulfate 4 mg 12/07/21 10:49 Morphine Sulfate (*Crx) 4 Mg/Ml Inj IV PUSH Q4H PRN Severe breakthrough pain Naloxone HCl 0.1 mg 12/07/21 10:49 Naloxone Hcl 0.4 Mg/Ml Vial IV PUSH Q2M PRN Respiratory rate less than 10 Non-Formulary Medication 0.5 mg 12/14/21 09:00 Semaglutide [Ozempic] SUB-Q 01/13/22 08:59 WEEKLY [facility] Ondansetron HCl 4 mg 12/07/21 06:58 Ondansetron Inj 4 Mg/2 Ml Vial IV PUSH ONCE PRN Nausea Ondansetron HCl 4 mg 12/07/21 10:49 Ondansetron Inj 4 Mg/2 Ml Vial IV PUSH Q6H PRN Nausea And Vom
[2021-12-08] MEDS: HYDROcodone/acetaminophen (*CRX) 5-325 MG TABLET 1 TAB PO (13:49)
[2021-12-08 15:30] VITALS: BP 130/71; PULSE 71; RESP 16; TEMP 36.6; O2SAT 100
== END 2021-12-08 16:35 | disposition home or self-care (01) ==
LOC: ANHSURGERY 07:31 → ANHOB2 13:41
PROVIDERS: PCP Family Medicine; Visit Provider Obstetrics & Gynecology
PROC: (CPT 58573; principal; 2021-12-07 07:30)
DX: N93.9 Abnormal uterine and vaginal bleeding, unspecified (principal); D39.0 Neoplasm of uncertain behavior of uterus; D25.1 Intramural leiomyoma of uterus; N83.8 Other noninflammatory disorders of ovary, fallopian tube and broad ligament; K21.9 Gastro-esophageal reflux disease without esophagitis; E11.9 Type 2 diabetes mellitus without complications; M10.9 Gout, unspecified; J45.909 Unspecified asthma, uncomplicated; E66.9 Obesity, unspecified; Z68.35 Body mass index [BMI] 35.0-35.9, adult; Z79.82 Long term (current) use of aspirin
CPT/HCPCS: 58573; S2900; 36415; 82948; 86850; 86900; 86901; 88307; 88309; 88342; 99199; A9270; J0690; J1170; J1650; J1885; J2250; J2405; J2704; J2710; J3010; J7030; J7120; J7121

== ENCOUNTER 2022-01-20 11:54 | Outpatient (CLI) | payer BC, SELFPAY ==
--- NOTE | ~2022-01-20 | DEXA_ITS ---
Bone Density Report Name: FELICITAS YATES Age: 56 Sex: Female Ethnicity: White Date of : 1965 Indication: postmenopausal; screening for osteoporosis; height loss; cancer; asthma or emphysema; hysterectomy; Referring Provider: MECCA PALMA Study: Bone densitometry was performed. Exam Date: January 20, 2022 Accession number: [id number] Bone Density: Region BMD T-score Z-score Classification AP Spine(L1-L4) 1.173 1.1 2.4 Normal Femoral Neck (Left) 0.790 -0.5 0.7 Normal Total Hip (Left) 0.984 0.3 1.2 Normal Femoral Neck (Right) 0.854 0.0 1.3 Normal Total Hip (Right) 1.016 0.6 1.5 Normal Total Hip Mean 1.000 0.5 1.4 Normal World Health Organization criteria for BMD impression classify patients as: Normal (T-score at or above -1.0), Osteopenia (T-score between -1.0 and -2.5), or Osteoporosis (T-score at or below -2.5). 10-year Fracture Risk: FRAX not reported because: All T-scores for Spine Total, Hip Total, Femoral Neck at or above -1.0 Clinical Information Provided by Patient: Has the following medical conditions: Asthma or Emphysema, Cancer, Hysterectomy Patient maximum height was 69 Menopause Age: 56 Drinks caffeinated beverages Onset of menses at age 11 Number of children 0 Impression: The patient has normal bone mass. Discussion: BONE DENSITY IS ABOVE THE MINIMUM DESIRABLE LEVEL AT ALL SKELETAL SITES TESTED. This patient?s bone mineral density is above the minimum desirable level (T-score -1.0 or better) at all sites measured. The patient should follow a healthful lifestyle (good nutrition with adequate calcium and vitamin D, and appropriate weight-bearing exercise). Follow-Up: Consider repeating this study in 5 years or sooner if there is some new clinical indication. Reported by: CARLOS ALBERTO on 01/20/2022 12:30:00 PM. Reviewed, dictated and finalized at location ATaryn MORAN
--- NOTE | ~2022-01-20 | MM_ITS ---
EXAMINATION: MM screening michael BI w kvng HISTORY: Screening mammogram TECHNIQUE: Craniocaudal and mediolateral oblique 3-D tomosynthesis images were obtained and synthetic 2-D images were generated. CAD analysis was submitted and interpreted. COMPARISON: No prior mammogram is available for comparison at this institution. BREAST PARENCHYMAL COMPOSITION: There are scattered areas of fibroglandular density. FINDINGS: There is no evidence of suspicious mass, calcification, or architectural distortion to sugg est malignancy in either breast. There has been no suspicious interval change. IMPRESSION: 1. No mammographic evidence of malignancy. 2. Recommend routine screening mammography in one year. BI-RADS Category 1: Negative Reviewed, dictated and finalized at location A.
== END 2022-01-20 11:55 | disposition home or self-care (01) ==
PROVIDERS: PCP Family Medicine
DX: Z12.31 Encounter for screening mammogram for malignant neoplasm of breast (principal); Z78.0 Asymptomatic menopausal state
CPT/HCPCS: 77063; 77067; 77080

== ENCOUNTER 2022-04-19 10:08 | Outpatient (CLI) | payer BC, SELFPAY ==
[2022-04-19 20:24] LABS: Anion Gap 13 mmol/L (8-16); Blood Urea Nitrogen 13 mg/dL (7-17); Calcium 9.1 mg/dL (8.4-10.2); Carbon Dioxide 26 mmol/L (22-30); Chloride 99 mmol/L (98-107); Cholesterol 166 mg/dL (0-200); Estimated Glomerular Filt Rate > 60; Glucose 90 mg/dL (65-110); HDL Direct 31 mg/dL; Potassium 3.5 mmol/L (3.4-5.0); Sodium 138 mmol/L (137-145); Triglycerides 61 mg/dL (<150)
[2022-04-19 20:35] LABS: LDL Cholesterol Direct 107 mg/dL
[2022-04-19 20:46] LABS: Hemoglobin A1C 6.3 % (<5.7)
== END 2022-04-19 10:09 | disposition home or self-care (01) ==
LOC: ANHBWCLAB 10:09
PROVIDERS: PCP Family Medicine; Visit Provider Family Medicine
DX: E11.9 Type 2 diabetes mellitus without complications (principal); I10 Essential (primary) hypertension; E87.6 Hypokalemia
CPT/HCPCS: 36415; 80048; 80061; 83036

== ENCOUNTER 2022-06-05 09:52 | Outpatient (CLI) | payer BC, SELFPAY ==
--- NOTE | ~2022-06-05 | XR_ITS ---
EXAMINATION: XR shoulder LT min 2V, XR shoulder RT min 2V DATE: 06/05/2022 10:15 INDICATION: Bilateral shoulder pain TECHNIQUE: 1. AP internally and externally rotated, AP oblique externally rotated and axillary views of the left shoulder were obtained. 2. AP internally and externally rotated, AP oblique externally rotated and axillary views of the righ t shoulder were obtained. COMPARISON: None FINDINGS: Normal alignment at both shoulders. No fracture. Small sclerotic lesion with spiculated margins at t he metaphyseal region of the proximal left humerus most likely representing a bone island. No other s uspicious lytic or blastic bone lesions identified. Moderate left and mild to moderate right acromioc lavicular osteoarthritis. Mild bilateral glenohumeral osteoarthritis with mild nonuniform joint space narrowing and small marginal osteophytes along the glenoid on both the left and right. Soft tissues are unremarkable. Visualized portions of the upper lungs are clear. 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 Reviewed, dictated and finalized at location A. 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
--- NOTE | ~2022-06-05 | XR_ITS ---
EXAMINATION: XR wrist LT min 3V, XR wrist RT min 3V DATE: 06/05/2022 10:15 INDICATION: Bilateral carpal tunnel syndrome. TECHNIQUE: 1. Posteroanterior, ulnar deviation, oblique, and lateral views of the left wrist were obtained. 2. Posteroanterior, ulnar deviation, oblique, and lateral views of the right wrist were obtained. COMPARISON: none FINDINGS: Alignment is normal at the bilateral wrists and visualized hand. No fracture. Mild polyarticular oste oarthritis at the bilateral distal radioulnar, first metacarpophalangeal and a few of the visualized interphalangeal joints. No erosions. Soft tissues are unremarkable. IMPRESSION: 1. 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 Reviewed, dictated and finalized at location A. PHONE ASSEMBLER IMPRESSION: 1. 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
== END 2022-06-05 09:53 | disposition home or self-care (01) ==
LOC: ANHBWCIMG 09:53
PROVIDERS: PCP Family Medicine; Visit Provider Family Medicine
DX: M25.519 Pain in unspecified shoulder (principal); G56.00 Carpal tunnel syndrome, unspecified upper limb; M19.032 Primary osteoarthritis, left wrist; M19.031 Primary osteoarthritis, right wrist; M19.012 Primary osteoarthritis, left shoulder; M19.011 Primary osteoarthritis, right shoulder
CPT/HCPCS: 73030; 73110

== ENCOUNTER 2022-07-10 09:38 | Outpatient (CLI) | payer BC, SELFPAY ==
--- NOTE | 2022-07-10 11:00 | NEURO_ITS ---
Impression: # Known diabetic complains of pain in both upper extremities. 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 # Superimposed bilateral Carpal Tunnel Syndrome. # Needle/EMG exam mildly neurogenic distally. # Clinical correlation recommended. Motor Nerve Conduction Upper Extremities Median Nerve Conduction Velocity (m/sec) Terminal Latency (msec) Response Voltage(mV) Elbow-Wrist Wrist Elbow Wrist Right 56 3.6 1 3 Left 52 4.3 3 2 Ulnar Nerve Conduction Velocity (m/sec) Terminal Latency (msec) Response Voltage(mV) Above Elbow Below Elbow Wrist Above Elbow Below Elbow Wrist Right 57 2.3 4 6 Left 60 2.7 2 6 F-Wave Latency Median (ms) Ulnar (ms) Right 33.2 32.7 Left 31.1 32.5 Sensory Nerve Conduction Upper Extremities Median Nerve Stimulation Terminal Latency (msec) Wrist/Digit Response Voltage (uV) Wrist Right 5.8/5.5 14/23 Left 4.9/5.4 46/20 Ulnar Nerve Stimulation Terminal Latency (msec) Wrist/Digit Response Voltage (uV) Wrist Right 2.3 21 Left 2.3 50 Radial Nerve Terminal Latency (msec) Response Voltage(mV) Right 2.0 8 Left 2.0 16 Left Right Muscles Examined Fibrillation Fasciculation Scarcity Voltage Duration Left Right Left Right Left Right Left Right Left Right Deltoid Biceps x x Brachioradialis Triceps x x Pronator Teres x x Ext Indicis x x Ext Digitorum x x Abd Poll Brev Reduced Reduced x x 1st Dorsal Interosseus Reduced Reduced Abd Dig Min MTDD
== END 2022-07-10 09:39 | disposition home or self-care (01) ==
LOC: ANHNEURO 09:39
PROVIDERS: PCP Family Medicine; Visit Provider Family Medicine
DX: G56.03 Carpal tunnel syndrome, bilateral upper limbs (principal); G62.9 Polyneuropathy, unspecified
CPT/HCPCS: 95886; 95911

== ENCOUNTER 2022-10-18 09:34 | Outpatient (CLI) | payer BC, SELFPAY ==
[2022-10-18 20:21] LABS: Microalbumin Urine Random < 6.0 mg/L (0-16.7)
[2022-10-18 20:23] LABS: Alanine Aminotransferase 23 U/L (6-35); Albumin Level 4.1 g/dL (3.5-5.1); Alkaline Phosphatase 119 U/L (38-126); Anion Gap 6 mmol/L (8-16); Aspartate Amino Transferase 51 U/L (14-36); Bilirubin,Total 0.5 mg/dL (0.2-1.3); Blood Urea Nitrogen 10 mg/dL (7-17); Carbon Dioxide 32 mmol/L (22-30); Chloride 103 mmol/L (98-107); Estimated Glomerular Filt Rate > 60; Glucose 86 mg/dL (65-110); Potassium 3.4 mmol/L (3.4-5.0); Sodium 141 mmol/L (137-145)
== END 2022-10-18 09:35 | disposition home or self-care (01) ==
LOC: ANHBWCLAB 09:36
PROVIDERS: PCP Family Medicine; Visit Provider Family Medicine
DX: E11.9 Type 2 diabetes mellitus without complications (principal)
CPT/HCPCS: 36415; 80053; 82043; 83036

== ENCOUNTER 2023-01-19 10:10 | Outpatient (CLI) | payer BC, SELFPAY ==
--- NOTE | ~2023-01-19 | MM_ITS ---
EXAMINATION: MM screening michael BI w kvng HISTORY: Screening mammogram TECHNIQUE: Craniocaudal and mediolateral oblique 3-D tomosynthesis images were obtained and synthetic 2-D images were generated. CAD analysis was submitted and interpreted. COMPARISON: 01/16/2022 bilateral screening mammogram BREAST PARENCHYMAL COMPOSITION: There are scattered areas of fibroglandular density. FINDINGS: There is no evidence of suspicious mass, calcification, or architectural distortion to sugg est malignancy in either breast. There has been no suspicious interval change. IMPRESSION: 1. No mammographic evidence of malignancy. 2. Recommend routine screening mammography in one year. BI-RADS Category 1: Negative Reviewed, dictated and finalized at location A.
== END 2023-01-19 10:11 | disposition home or self-care (01) ==
PROVIDERS: PCP Family Medicine; Visit Provider Family Medicine
DX: Z12.31 Encounter for screening mammogram for malignant neoplasm of breast (principal)
CPT/HCPCS: 77063; 77067

== ENCOUNTER 2023-04-23 09:53 | Outpatient (CLI) | payer BC, SELFPAY ==
[2023-04-23 18:47] LABS: Alanine Aminotransferase 20 U/L (6-35); Albumin Level 4.2 g/dL (3.5-5.1); Alkaline Phosphatase 103 U/L (38-126); Anion Gap 7 mmol/L (8-16); Aspartate Amino Transferase 37 U/L (14-36); Bilirubin,Total 0.6 mg/dL (0.2-1.3); Blood Urea Nitrogen 13 mg/dL (7-17); Calcium 9.1 mg/dL (8.4-10.2); Carbon Dioxide 29 mmol/L (22-30); Chloride 101 mmol/L (98-107); Cholesterol 176 mg/dL (0-200); Estimated Glomerular Filt Rate > 60; Glucose 107 mg/dL (65-110); HDL Direct 32 mg/dL; Potassium 3.3 mmol/L (3.4-5.0); Sodium 137 mmol/L (137-145); Triglycerides 66 mg/dL (<150)
[2023-04-23 18:58] LABS: LDL Cholesterol Direct 120 mg/dL
[2023-04-23 19:01] LABS: Creatinine Urine 146.7 mg/dL
[2023-04-23 19:05] LABS: MALB Creatinine Ratio 8.2 mg/g (0-30)
[2023-04-23 19:55] LABS: Hematocrit 41.2 % (37.0-47.0); Hemoglobin 12.2 g/dL (12.0-15.0); Mean Corpuscular HGB Conc 29.6 g/dl (32-36); Mean Corpuscular Hemoglobin 25.4 pg (26-34); Mean Corpuscular Volume 85.7 fl (80-100); Mean Platelet Volume 9.3 fl (7.4-10.4); Platelet Count Result 406 k/mm3 (150-375); Red Blood Count 4.81 M/mm3 (4.2-5.4); Red Cell Distribution Width 15.5 % (11.5-14.5); White Blood Count 12.1 K/mm3 (4.5-10.0)
[2023-04-23 20:18] LABS: Hemoglobin A1C 6.5 % (<5.7)
== END 2023-04-23 09:54 | disposition home or self-care (01) ==
LOC: ANHBWCLAB 09:55
PROVIDERS: PCP Family Medicine; Visit Provider Family Medicine
DX: E78.5 Hyperlipidemia, unspecified (principal); K21.9 Gastro-esophageal reflux disease without esophagitis; J45.909 Unspecified asthma, uncomplicated; E11.9 Type 2 diabetes mellitus without complications; E66.9 Obesity, unspecified
CPT/HCPCS: 36415; 80053; 80061; 82043; 83036; 85027

== ENCOUNTER 2023-05-25 10:33 | Outpatient (CLI) | payer BC, SELFPAY ==
[2023-05-25 18:36] LABS: Hematocrit 41.3 % (37.0-47.0); Hemoglobin 12.3 g/dL (12.0-15.0); Mean Corpuscular HGB Conc 29.8 g/dl (32-36); Mean Corpuscular Hemoglobin 25.2 pg (26-34); Mean Corpuscular Volume 84.6 fl (80-100); Mean Platelet Volume 9.7 fl (7.4-10.4); Platelet Count Result 406 k/mm3 (150-375); Red Blood Count 4.88 M/mm3 (4.2-5.4); Red Cell Distribution Width 15.4 % (11.5-14.5); White Blood Count 9.1 K/mm3 (4.5-10.0)
== END 2023-05-25 10:34 | disposition home or self-care (01) ==
LOC: ANHBWCLAB 10:35
PROVIDERS: PCP Family Medicine; Visit Provider Family Medicine
DX: D72.829 Elevated white blood cell count, unspecified (principal)
CPT/HCPCS: 36415; 85027

== ENCOUNTER 2023-06-12 00:29 | Day surgery (SDC) | payer BC, SELFPAY ==
[2023-05-29 14:34] VITALS: BMI 39.2
--- NOTE | 2023-06-08 10:16 | SUR.PREOP ---
Patient called regarding upcoming procedure. Reviewed preop instructions, appointment times, and procedure prep.
[2023-06-12 08:08] VITALS: BP 151/83; PULSE 86; RESP 17; TEMP 36.8; O2SAT 100; BMI 39.6
[2023-06-12] MEDS: LACTATED RINGERS 1,000 ML 150 ML IV CONT (08:20)
[2023-06-12 08:21] LABS: Glucose Point of Care 108 mg/dl (65-105)
--- NOTE | 2023-06-12 08:35 | WPDANESEPPF ---
Anes - Initial Pre Proc Eval Procedure: Operation Date: 06/12/23 09:30 Proposed Procedures p Esophagogastroduodenoscopy EGD - Wilton Walsh MD Date/Time: 06/12/23 08:35 Surgeon: Wilton Walsh MD Pre Op Diagnosis: GERD, polyp of stomach and duodenum Patient Data Age: 57 Gender: F Height: 1.75 m Weight: 121.8 kg Last Vital Signs Temp 98.3 F 06/12/23 08:08 Pulse 86 06/12/23 08:08 Resp 17 06/12/23 08:08 BP 151/83 H 06/12/23 08:08 Pulse Ox 100 06/12/23 08:08 O2 Del Method Room Air 06/12/23 08:08 Allergies Allergy/AdvReac Type Severity Reaction Status Date / Time No Known Allergies Allergy Verified 06/12/23 08:07 Home Medications Medication Instructions Recorded Confirmed Type aspirin 81 mg tablet,delayed 81 mg PO DAILY 03/30/21 06/12/23 History release (Adult Low Dose Aspirin) hydrochlorothiazide 25 mg tablet 25 mg PO DAILY #90 tabs 07/02/22 06/12/23 Rx megestrol 40 mg tablet 20 mg PO DAILY 07/20/22 06/12/23 History albuterol sulfate 90 mcg/actuation 1 inh inhalation Q4H PRN shortness 10/24/22 06/12/23 Rx aerosol inhaler of breath or wheezing #8.5 grams cetirizine 10 mg tablet (Zyrtec) 10 mg PO DAILY PRN allergy 10/24/22 06/12/23 Rx symptoms #90 tabs allopurinol 100 mg tablet 100 mg PO DAILY #90 tabs 02/24/23 06/12/23 Rx eszopiclone 1 mg tablet (Lunesta) 1 mg PO QHS PRN insomnia #30 tabs 04/30/23 06/12/23 Rx omeprazole 40 mg capsule,delayed 40 mg PO DAILY #90 caps 04/30/23 06/12/23 Rx release semaglutide 1 mg/dose (4 mg/3 mL) 1 mg (0.75 mL) subcut WEEKLY 3 05/14/23 06/12/23 Rx subcutaneous pen injector (Ozempic) months #9.75 mL Laboratory Tests 06/12/23 08:14 POC Capillary Glucose 108 H mg/dl (65-105) Patient hx anesthesia problems: none Family hx anesthesia problems: none Results Review: All pre-operative results and documents have been reviewed as part of the pre-operative evaluation. [facility] Past Medical History Medical History (Updated 05/27/23 @ 07:09 by Genaro Garcia MD) Asthma Carpal tunnel syndrome Bilateral Diabetes Elective x1 GERD (gastroesophageal reflux disease) Gout History of cancer Type 2 diabetes mellitus Surgical History Surgical History History of endometrial ablation 2013 History of hysterectomy History of hysteroscopy 2014 History of neck surgery lipoma removed Family History Family History Father Malignant neoplasm of prostate Diabetes mellitus Hypertension Heart disease Mother Asthma Carcinoma of colon Hypertension Heart disease Thyroid disorder Other Anxiety and depression sister Social History Social History (Updated 10/24/22 @ 14:19 by Eva Morgan MA) Smoking status: Never smoker Alcohol intake: never Substance use: never Substance use type: does not use Lack of Transportation: No Lack of Food: Never True Current Housing: I Have Housing Concerned About Future Housing: No Difficulty Paying Gas/Electric Bills: No Difficulty Paying for Meds: No Currently Unemployed: No Education: Master's Degree or Higher Difficulty w/ Childcare or Family Care: No Living arrangements: with family Occupation/Education: retired Gender identity (if verbalized by the patient): Female Sexual Orientation (if Verbalized by the Patient): Straight or Heterosexual Spiritual care concerns: No Agree to blood products: Yes Anes - Eval Final PreProcedure Day of Procedure 06/12/23 08:35 Patient weight: morbidly obese Heart: regular rate and rhythm Lungs: clear to auscultation Airway: Mallampati scale class II Neurological: alert and oriented Last oral intake: >/= 8 hours ASA classification: III Emergent: no Anesthetic plan: proceed Anesthesia type and monitoring: general GIVS and standard monitoring
--- NOTE | 2023-06-12 09:03 | PM.HPGS ---
History of Present Illness History of Present Illness Consent: Risks, benefits, and alternatives have been discussed and questions answered. Patient agrees to proceed with procedure. Chief complaint: GERD, polyp of stomach and duodenum Narrative: Aditi Damon is a 57 year old female with gerd better on omeprazole, also had CT chest with incidental finding of small HH and possible polyps in stomach, never had egd Review of Systems Constitutional: Constitutional: Denies headache(s) and Denies weakness Eyes: Eyes: Denies blurry vision ENT: Reports Normal hearing present, Denies headache(s) and Denies neck pain Cardiovascular: Cardiovascular: Denies chest pain and Denies dyspnea Respiratory: Respiratory: Denies dyspnea Gastrointestinal: Gastrointestinal: Reports no additional gastrointestinal complaints Genitourinary: Genitourinary: Denies dysuria Musculoskeletal: Musculoskeletal: Denies neck pain Integumentary/Breasts: Skin/Breast: Denies dry skin Neurologic: Reports Normal hearing present, Denies headache(s) and Denies weakness Psychiatric: Psychiatric: Denies anxiety Endocrine: Endocrine: Denies change in body appearance Hematologic/Lymphatic: Hematologic/Lymphatic: Denies easy bleeding Allergic/Immunologic: Allergic/Immunologic: Denies urticaria PMFSH Past Medical History Medical History (Updated 06/12/23 @ 09:03 by Wilton Walsh MD) Abnormal CT scan, stomach Asthma Carpal tunnel syndrome Bilateral Diabetes Elective x1 GERD (gastroesophageal reflux disease) Gout History of cancer Type 2 diabetes mellitus Surgical History Surgical History History of endometrial ablation 2014 History of hysterectomy History of hysteroscopy 2014 History of neck surgery lipoma removed Family History Family History Father Malignant neoplasm of prostate Diabetes mellitus Hypertension Heart disease Mother Asthma Carcinoma of colon Hypertension Heart disease Thyroid disorder Other Anxiety and depression sister Social History Social History (Updated 10/24/22 @ 14:19 by Eva Morgan MA) Smoking status: Never smoker Alcohol intake: never Substance use: never Substance use type: does not use Lack of Transportation: No Lack of Food: Never True Current Housing: I Have Housing Concerned About Future Housing: No Difficulty Paying Gas/Electric Bills: No Difficulty Paying for Meds: No Currently Unemployed: No Education: Master's Degree or Higher Difficulty w/ Childcare or Family Care: No Living arrangements: with family Occupation/Education: retired Gender identity (if verbalized by the patient): Female Sexual Orientation (if Verbalized by the Patient): Straight or Heterosexual Spiritual care concerns: No Agree to blood products: Yes Meds Home Medications and Allergies Home Medications Medication Instructions Recorded Confirmed Type aspirin 81 mg tablet,delayed 81 mg PO DAILY 03/30/21 06/12/23 History release (Adult Low Dose Aspirin) hydrochlorothiazide 25 mg tablet 25 mg PO DAILY #90 tabs 07/02/22 06/12/23 Rx megestrol 40 mg tablet 20 mg PO DAILY 07/20/22 06/12/23 History albuterol sulfate 90 mcg/actuation 1 inh inhalation Q4H PRN shortness 10/24/22 06/12/23 Rx aerosol inhaler of breath or wheezing #8.5 grams cetirizine 10 mg tablet (Zyrtec) 10 mg PO DAILY PRN allergy 10/24/22 06/12/23 Rx symptoms #90 tabs allopurinol 100 mg tablet 100 mg PO DAILY #90 tabs 02/24/23 06/12/23 Rx eszopiclone 1 mg tablet (Lunesta) 1 mg PO QHS PRN insomnia #30 tabs 04/30/23 06/12/23 Rx omeprazole 40 mg capsule,delayed 40 mg PO DAILY #90 caps 04/30/23 06/12/23 Rx release semaglutide 1 mg/dose (4 mg/3 mL) 1 mg (0.75 mL) subcut WEEKLY 3 05/14/23 06/12/23 Rx subcutaneous pen injector (Ozempic) months #9.75 mL A
[2023-06-12] MEDS: BENZOCAINE (*SP) 60 ML SPRAY CAN (HURRICAINE) 1 SPRAY MUCOUS MEM (09:06)
[2023-06-12 09:15] VITALS: BP 121/77; PULSE 83; RESP 25; O2SAT 100
[2023-06-12 09:25] VITALS: BP 124/73; PULSE 87; RESP 24; O2SAT 100
[2023-06-12 09:31] VITALS: BP 121/80; PULSE 79; RESP 22; O2SAT 100
== END 2023-06-12 09:45 | disposition home or self-care (01) ==
PROVIDERS: PCP Family Medicine; Visit Provider Internal Medicine Gastroenterology
PROC: 0DJ08ZZ Inspection of Upper Intestinal Tract, Via Natural or Artificial Opening Endoscopic (ICD-10-PCS; CPT 43235; principal; 2023-06-12 09:30)
DX: K21.9 Gastro-esophageal reflux disease without esophagitis (principal); K29.50 Unspecified chronic gastritis without bleeding; K44.9 Diaphragmatic hernia without obstruction or gangrene; K31.7 Polyp of stomach and duodenum; E11.9 Type 2 diabetes mellitus without complications; R93.3 Abnormal findings on diagnostic imaging of other parts of digestive tract; M10.9 Gout, unspecified; G47.00 Insomnia, unspecified; Z83.3 Family history of diabetes mellitus; Z79.82 Long term (current) use of aspirin; Z79.899 Other long term (current) drug therapy; Z79.51 Long term (current) use of inhaled steroids; Z79.85 Long-term (current) use of injectable non-insulin antidiabetic drugs
CPT/HCPCS: 43239; 82948; 88305; 88342; J2704; J7120

== ENCOUNTER 2023-11-05 11:29 | Outpatient (CLI) | payer BC, SELFPAY ==
[2023-11-05 20:37] LABS: Hematocrit 45.1 % (37.0-47.0); Hemoglobin 13.3 g/dL (12.0-15.0); Mean Corpuscular HGB Conc 29.5 g/dl (32-36); Mean Corpuscular Hemoglobin 26.3 pg (26-34); Mean Corpuscular Volume 89.3 fl (80-100); Mean Platelet Volume 9.4 fl (7.4-10.4); Platelet Count Result 435 k/mm3 (150-375); Red Blood Count 5.05 M/mm3 (4.2-5.4); Red Cell Distribution Width 14.6 % (11.5-14.5); White Blood Count 10.2 K/mm3 (4.5-10.0)
[2023-11-05 20:45] LABS: Microalbumin Urine Random 34.1 mg/L (0-16.7)
[2023-11-05 21:29] LABS: Creatinine Urine 370.5 mg/dL; MALB Creatinine Ratio 9.2 mg/g (0-30)
[2023-11-05 21:34] LABS: Alanine Aminotransferase 17 U/L (6-35); Albumin Level 4.5 g/dL (3.5-5.1); Alkaline Phosphatase 99 U/L (38-126); Anion Gap 9 mmol/L (4-12); Aspartate Amino Transferase 37 U/L (14-36); Bilirubin,Total 0.6 mg/dL (0.2-1.3); Blood Urea Nitrogen 10 mg/dL (7-17); Calcium 9.7 mg/dL (8.4-10.2); Carbon Dioxide 27 mmol/L (22-30); Chloride 103 mmol/L (98-107); Cholesterol 188 mg/dL (0-200); Estimated Glomerular Filt Rate > 60; Glucose 111 mg/dL (65-110); HDL Direct 39 mg/dL; Potassium 3.3 mmol/L (3.4-5.0); Sodium 139 mmol/L (137-145); Triglycerides 61 mg/dL (<150)
[2023-11-05 21:45] LABS: LDL Cholesterol Direct 139 mg/dL
[2023-11-05 23:10] LABS: Hemoglobin A1C 6.2 % (<5.7)
== END 2023-11-05 11:30 | disposition home or self-care (01) ==
LOC: ANHBWCLAB 11:30
PROVIDERS: PCP Family Medicine; Visit Provider Family Medicine
DX: Z00.00 Encounter for general adult medical examination without abnormal findings (principal); E11.9 Type 2 diabetes mellitus without complications
CPT/HCPCS: 36415; 80053; 80061; 82043; 83036; 85027

== ENCOUNTER 2023-11-12 10:44 | Outpatient (CLI) | payer BC, SELFPAY ==
--- NOTE | ~2023-11-12 | XR_ITS ---
EXAMINATION: XR TMJ BI DATE: 11/12/2023 11:06 INDICATION: Right jaw pain. TECHNIQUE: Open-mouth and closed views of the bilateral temporomandibular joints for a total of 4 vie ws were obtained. COMPARISON: None. FINDINGS: Bone alignment is normal. No fracture. There is normal anterior transition of the mandibula r condyles in the open-mouth position. There is mild osteoarthritis of the temporomandibular joints. IMPRESSION: 1. Mild osteoarthritis of the temporomandibular joints. Reviewed, dictated and finalized at location E.
--- NOTE | ~2023-11-12 | XR_ITS ---
Left Knee Technique: AP, lateral, and sunrise views were obtained. Clinical History: Pain Findings: No fracture or dislocation is seen. Moderate tricompartmental degenerative spurring present , worst at the medial joint line. Soft tissues are unremarkable. No joint effusion is seen. Impression: Moderate tricompartmental degenerative spurring, as above. Reviewed, dictated and finalized at location . Impression: Moderate tricompartmental degenerative spurring, as above.
--- NOTE | ~2023-11-12 | XR_ITS ---
Right Knee Technique: AP, lateral, and sunrise views were obtained. Clinical History: Pain Findings: No fracture or dislocation is seen. Moderate tricompartmental degenerative spurring present .. Soft tissues are unremarkable. No joint effusion is seen. Impression: Moderate tricompartmental degenerative spurring. Reviewed, dictated and finalized at location . Impression: Moderate tricompartmental degenerative spurring.
== END 2023-11-12 10:45 | disposition home or self-care (01) ==
LOC: ANHBWCIMG 10:45
PROVIDERS: PCP Family Medicine; Visit Provider Family Medicine
DX: M25.762 Osteophyte, left knee (principal); M26.643 Arthritis of bilateral temporomandibular joint
CPT/HCPCS: 70330; 73562

== ENCOUNTER 2024-01-22 13:02 | Outpatient (CLI) | payer BC, SELFPAY ==
--- NOTE | ~2024-01-22 | MM_ITS ---
EXAMINATION: MM screening michael BI w kvng HISTORY: Screening mammogram TECHNIQUE: Craniocaudal and mediolateral oblique 3-D tomosynthesis images were obtained and synthetic 2-D images were generated. CAD analysis was submitted and interpreted. COMPARISON: 01/19/2023, 01/20/2022 BREAST PARENCHYMAL COMPOSITION:Not Dense. The breasts are almost entirely fatty FINDINGS: Stable left axillary lymph node. No suspicious mass, calcification, or architectural distor tion are identified in either breast to suggest malignancy. There has been no suspicious interval nabil nge. IMPRESSION: No mammographic evidence of malignancy. Recommend routine screening mammography in one year. BI-RADS Category 1: Negative Reviewed, dictated and finalized at location .
== END 2024-01-22 13:03 | disposition home or self-care (01) ==
PROVIDERS: PCP Family Medicine
DX: Z12.31 Encounter for screening mammogram for malignant neoplasm of breast (principal)
CPT/HCPCS: 77063; 77067

== ENCOUNTER 2024-02-19 14:09 | Outpatient (CLI) | payer BC, SELFPAY ==
--- NOTE | ~2024-02-19 | XR_ITS ---
EXAM: XR wrist RT min 3V DATE: 02/19/2024 14:19 HISTORY: lateral rt wrist pain x 6-8 wks . COMPARISON: 06/05/2022. FINDINGS: Normal mineralization. No fracture or dislocation. No lytic or blastic lesion. Mild degene rative change at the first CMC joint, first MCP joint, triscaphe joint, and radiocarpal joint. No ero whit or periosteal change. Soft tissues within normal limits. IMPRESSION: Mild polyarticular osteoarthritis. Reviewed, dictated and finalized at location K.
== END 2024-02-19 14:10 | disposition home or self-care (01) ==
LOC: ANHBWCIMG 14:10
PROVIDERS: PCP Family Medicine; Visit Provider Family Medicine
DX: M19.031 Primary osteoarthritis, right wrist (principal); M65.4 Radial styloid tenosynovitis [de Quervain]
CPT/HCPCS: 73110

== ENCOUNTER 2024-03-03 10:19 | Outpatient (CLI) | payer BC, SELFPAY ==
--- NOTE | ~2024-03-03 | XR_ITS ---
Right Knee Technique: AP, lateral, and sunrise views were obtained. Clinical History: Pain Findings: No fracture or dislocation is seen. Osseous alignment is anatomic. Joint moderate tricompar tmental degenerative change noted. Soft tissues are unremarkable. No joint effusion is seen. Impression: Moderate tricompartmental osteoarthritis. Reviewed, dictated and finalized at [facility]. Impression: Moderate tricompartmental osteoarthritis.
--- NOTE | ~2024-03-03 | XR_ITS ---
XR knee LT min 4V 03/03/2024 10:39 Indication: Left knee pain Procedure: 4 views left knee Comparison: 11/12/2023 Findings: Moderate-severe osteoarthritis of the left knee. There is chondrocalcinosis. No significant joint effusion. Impression: 1: Moderate-severe tricompartment osteoarthritis of the left knee. Reviewed, dictated and finalized at location B. Impression: 1: Moderate-severe tricompartment osteoarthritis of the left knee.
== END 2024-03-03 10:20 | disposition home or self-care (01) ==
LOC: ANHBWCIMG 10:20
PROVIDERS: PCP Family Medicine; Visit Provider Family Medicine
DX: M17.0 Bilateral primary osteoarthritis of knee (principal)
CPT/HCPCS: 73564

== ENCOUNTER 2024-05-08 10:17 | Outpatient (CLI) | payer BC, SELFPAY ==
[2024-05-08 19:54] LABS: Hematocrit 42.2 % (37.0-47.0); Hemoglobin 13.1 g/dL (12.0-15.0); Mean Corpuscular Hemoglobin 28.4 pg (26-34); Mean Corpuscular Volume 91.3 fl (80-100); Mean Platelet Volume 9.6 fl (7.4-10.4); Platelet Count Result 389 k/mm3 (150-375); Red Blood Count 4.62 M/mm3 (4.2-5.4); Red Cell Distribution Width 14.8 % (11.5-14.5); White Blood Count 9.4 K/mm3 (4.5-10.0)
[2024-05-08 20:09] LABS: Alanine Aminotransferase 20 U/L (6-35); Albumin Level 4.2 g/dL (3.5-5.1); Alkaline Phosphatase 82 U/L (38-126); Anion Gap 9 mmol/L (4-12); Aspartate Amino Transferase 59 U/L (14-36); Bilirubin,Total 0.6 mg/dL (0.2-1.3); Blood Urea Nitrogen 13 mg/dL (7-17); Calcium 9.3 mg/dL (8.4-10.2); Carbon Dioxide 27 mmol/L (22-30); Chloride 102 mmol/L (98-107); Estimated Glomerular Filt Rate > 60; Glucose 99 mg/dL (65-110); Potassium 3.6 mmol/L (3.4-5.0); Sodium 138 mmol/L (137-145); Uric Acid 4.4 mg/dL (2.5-7.5)
[2024-05-08 21:15] LABS: Microalbumin Urine Random < 6.0 mg/L (0-16.7)
[2024-05-08 21:17] LABS: Hemoglobin A1C 5.8 % (<5.7)
[2024-05-15 05:43] LABS: MALB Creatinine Ratio < 12.5 mg/g (0-30)
== END 2024-05-08 10:18 | disposition home or self-care (01) ==
LOC: ANHBWCLAB 10:18
PROVIDERS: PCP Family Medicine; Visit Provider Family Medicine
DX: G47.00 Insomnia, unspecified (principal); E11.9 Type 2 diabetes mellitus without complications; E66.9 Obesity, unspecified
CPT/HCPCS: 36415; 80053; 82043; 83036; 84550; 85027

== ENCOUNTER 2024-05-19 11:54 | Outpatient (CLI) | payer BC, SELFPAY ==
--- NOTE | ~2024-05-19 | US_ITS ---
EXAMINATION: US thyroid DATE: 05/19/2024 12:12 INDICATION: Nontoxic single thyroid nodule. TECHNIQUE: Multiple ultrasound images of the thyroid were obtained. COMPARISON: None. FINDINGS: The right thyroid lobe measures 5.0 x 1.8 x 1.5 cm. The left thyroid lobe measures 5.0 x 2.2 x 2.0 c m. In the left thyroid lobe, there is a 12 mm mixed cystic and solid, hypoechoic, wider than tall no dule with smooth margin without echogenic foci (TI-RADS TR3). In the left thyroid lobe, there is a 2. 3 cm solid, hypoechoic, wider than tall nodule with smooth margin without echogenic foci (TR4). IMPRESSION: 1. Thyroid nodules. Ultrasound-guided fine-needle aspiration of the 2.3 cm left thyroid nodule is rec ommended. Reviewed, dictated and finalized at location A. IMPRESSION: 1. Thyroid nodules. Ultrasound-guided fine-needle aspiration of the 2.3 cm left thyroid nodule is recommended.
== END 2024-05-19 11:55 | disposition home or self-care (01) ==
LOC: GOSHIMG 11:56
PROVIDERS: Visit Provider Family Medicine
DX: E04.2 Nontoxic multinodular goiter (principal)
CPT/HCPCS: 76536

== ENCOUNTER 2024-07-16 12:40 | Outpatient (CLI) | payer BC, SELFPAY ==
--- NOTE | ~2024-07-16 | US_ITS ---
EXAMINATION: US FNA w image guidance DATE: 07/16/2024 13:31 INDICATION: Left thyroid nodule TECHNIQUE: A time-out was performed to verify the patient's name, date of , and procedure to be performed . The procedure and its benefits and risks were discussed with the patient. Risks specifically discus sed included bleeding and infection. The patient understood the risks and agreed to proceed. The neck was prepped and draped in the usual sterile manner. 4 mL 1% lidocaine was used for local anesthesia . 6 passes were made with a 25G needle into the lesion. Appropriate needle location was documented with continuous sonographic guidance. A sterile bandage was applied. There were no immediate compli cations. FINDINGS: Grayscale ultrasound images demonstrate biopsy needles advanced into the 2.3 cm solid hypoechoic left thyroid nodule of concern. IMPRESSION: 1. Successful ultrasound-guided fine needle aspiration of the 2.3 cm TI-RADS 4 left thyroid nodule o f concern. Reviewed, dictated and finalized at location A. ELER IMPRESSION: 1. Successful ultrasound-guided fine needle aspiration of the 2.3 cm TI-RADS 4 left thyroid nodule of concern.
== END 2024-07-16 12:41 | disposition home or self-care (01) ==
PROVIDERS: PCP Family Medicine; Visit Provider Family Medicine
DX: E04.1 Nontoxic single thyroid nodule (principal)
CPT/HCPCS: 10005; 88172; 88173; 88305

== ENCOUNTER 2024-11-12 09:58 | Outpatient (CLI) | payer BC, SELFPAY ==
--- OUTSIDE RECORDS SUMMARY | 2024-11-12 10:55 | XMS_ITS | Encounter Summary ---
Author Organization [facility] Address [address] [place] [address] Phone Care Team Providers Care Statistical Geneticist Name Role Phone Genaro Garcia MD Primary Care Provider [phone] Js Moser MD Unavailable [phone] Encounter Details Date Type Department Care Team (Late st Contact Info) Description 09/15/2024 Results Follow-Up [facility] [address] [facility] [address] [place] [address] [place] [id number] Alexia Wooten RN Social History Tobacco Use Types Packs/Day Years Used Date Smoking Tobacco: Never Smokeless Tobacco: Never AUDIT-C Answer Date Recorded Q1: How often do you have a drink containing alc ohol? Never 09/04/2024 Average Number of Drinks Not on file 025 Frequency of Binge Drinking Not on file 12/2024 Personal Safety Answer Date Recorded Have you ever been in or are you currently in a harmful physical or emotional relationship or is someone making you feel afraid or unsafe? Denies 09/04/2024 Comments No Sex and Gender Information Value Date Recorded Sex Assigned at Not on file Legal Sex Female 4:41 PM [employer] Gender Identity Not on file Sexual Orientation Not on file documented as of this encounter Plan of Treatment Not on file documented as of this encounter Visit Diagnoses Not on filedocumented in this encounter Care Teams Statistical Geneticist Relationship Specialty Start Date End Date Genaro Garcia MD PCP - General Family Practice 12/13/22 Js Moser MD [address] [facility] [address] [facility] [address] [place] [address] Referring Physician Obstetrics and Gynecology 04/16/23 documented as of this encounter
--- OUTSIDE RECORDS SUMMARY | 2024-11-12 10:55 | XMS_ITS | Encounter Summary ---
Author Organization [facility] Address [address] [facility] [address] [place] [address] Phone Care Team Providers Care Expense Clerk Name Role Phone Js Moser MD Primary Care Provider [phone] Genaro Garcia MD Primary Care Provider [phone] Js Moser MD Unavailable [phone] Encounter Details Date Type Department Care Team (Latest Contact Info) Description 01/20/2022 Orders Only [facility] Jorge Ratliff MD [address] [facility] [id number] [place] [address] Social History Tobacco Use Types Packs/Day Years Used Date Smoking Tobacco: Unknown Comments Unknown Sex and Gender Information Value Date Recorded Sex Assigned at Not on file Legal Sex Female 4:41 PM [employer] Gender Identity Not on file Sexual Orientation Not on file documented as of this encounter Plan of Treatment Not on file documented as of this encounter Procedures Procedure Name Priority Date/Time Associated Diagnosis Comments SCAN - LABS 01/20/2022 documented in this encounter Results * SCAN - LABS (01/20/2022) Jorge Ratliff MD Final Re sult documented in this encounter Visit Diagnoses Not on filedocumented in this encounter Care Teams Expense Clerk Relationship Specialty Start Date End Date Js Moser MD [address] [place] [address] PCP - General Obstetrics and Gynecology 01/04/22 12/12/22 Genaro Garcia MD [address] [address] PCP - General Family Practice 12/13/22 Js Moser MD [address] [address] Referring Physician Obstetrics and Gynecology 04/16/23 documented as of this encounter
--- OUTSIDE RECORDS SUMMARY | 2024-11-12 10:55 | XMS_ITS | Clinical Summary ---
Author Organization [facility] Address [address] [address] Phone Care Team Providers Care Barrel Polisher Name Role Phone Genaro Garcia MD Primary Care Provider [phone] Js Moser MD Unavailable Allergies No known active allergies Medications allopurinoL (ZYLOPRIM) 100 mg tablet 12/05/19 22 Active hydroCHLOROth iazide (HYDRODIURIL) 25 mg tablet Take 1 tablet (25 mg total) by mouth daily 10/08/19 22 Active aspirin 81 mg chewable tablet Take 1 tablet (81 mg total) by mouth daily Active albuterol HFA (PROVENTIL HFA,VENTOLIN HFA,PROAIR HFA) 90 mcg/actuation inhaler INHALE 1 PUFF BY MOUTH EVERY 4 HOURS NEEDED FOR SHORTNESS OF BREATH AND FOR WHEEZING 10/25/19 23 Active cetirizine (ZyrTEC) 10 mg tablet Take by mouth daily as needed 10/25/19 23 Active omeprazole (PriLOSEC) 40 mg capsule Take 1 capsule (40 mg total) by mouth daily 04/30/20 23 Active Mounjaro 15 mg/0.5 mL pen injector INJECT 15 MG SUBCUTANEOUSLY ONCE A WEEK 03/03/20 24 Active triamcinolone (KENALOG) 0.1 % ointment APPLY TO RASH ON LEGS AND ARMS TWICE DAILY FOR 4 WEEKS FOR FLARES. THEN USE TWICE A WEEK FOR MAINTENANCE TO PREVENT RECURRENCES 08/01/19 25 Active megestroL (MEGACE) 40 mg tabletIndicat ions:Uterine cancer, sarcoma (HCC) Take 2 tablets by mouth twice daily 120 tablet 10/21/19 25 Active megestroL (MEGACE) 40 mg tabletIndicat ions:Uterine cancer, sarcoma (HCC) Take 2 tablets by mouth twice daily 120 tablet 09/22/19 25 2024 Discontinued Active Problems Problem Noted Date Diagnosed Date Lesion of stomach 08/20/2024 Use of megestrol acetate (Megace) 07/16/2023 Uterine cancer, sarcoma 09/18/2022 Arthritis 01/04/2022 Asthma 01/04/2022 Difficulty sleeping 01/04/2022 Gastroesophageal reflux disease 01/04/2022 Headache 01/04/2022 Joint pain 01/04/2022 Numbness of foot 01/04/2022 Wears glasses 01/04/2022 Encounters Date Type Department Care Team Description 5 Results Follow-Up [facility] Gastroenterology [address] [place] [address] Advanced Medicine 12th [place] [address] [place] [address] NovemberAlexia RN 5 12:00 PM PROFESSOR OF INDUSTRIAL TECHNOLOGY - 5 12:30 PM PROFESSOR OF INDUSTRIAL TECHNOLOGY Surgery [facility] [address] [address] Charlene Wilson MD ESOPHAGOGASTRODUODENOSCOPY WITH MUCOSAL RESECTION 5 11:26 AM PROFESSOR OF INDUSTRIAL TECHNOLOGY Anesthesia Event [facility] [address] [address] Michelle Rodriguez MD Dodd, Gwendolyn L., GATE TENDER 5 11:01 AM PROFESSOR OF INDUSTRIAL TECHNOLOGY - 5 1:05 PM PROFESSOR OF INDUSTRIAL TECHNOLOGY Hospital Encounter [facility] [address] [address] Charlene Wilson MD Lesion of stomach Discharge Disposition: Discharge to home or self care 5 Orders Only [facility] Department of Otolaryngology Head-Neck Division [address] [place] [address] Shravan Rod MD Thyroid nodule (Primary Dx) 5 Telephone [facility] Department of Otolaryngology Head-Neck Division [address] 5 [place] [address] Janet Hollis, JOSE L [address] [facility] Specialty Services [address] [place] [phone] Fabby De Souza RN [address] [facility] Specialty Services [address] [place] [phone] Fabby De Souza RN GI PROCEDURE 7 DAY PRE CALL [address] [facility] Specialty Services [address] [place] [phone] Miscellaneous , Not In File 5 Telephone [facility] Department of Otolaryngology Head-Neck Division [facility] [place] [address] Janet Hollis RN 5 Telephone [facility]NT [address] [place] [address] 11th [place] [address] Venus Mejía, [address] [facility] Specialty Services [address] [place] [phone] Selin Dye RN GI Preprocedure 5 9:20 AM PROFESSOR OF INDUSTRIAL TECHNOLOGY Office Visit [facility] Obstetrics and Gynecology [address] [place] [address] Medicine 13th [place] [address] [place] [phone] Jorge Ratliff MD Uterine cancer, sarcoma (HCC) (Primary Dx); Use of megestrol acetate (Megace) 5 Orders Only [facility] Obstetrics and Gynecology [address] [place] [address] 13th [place] [address] [place] [address] Lesly Jackson RN Lesion of stomach (Primary Dx) 5 Orders Only [address] [address] Shravan Rod MD Thyroid nodule 5 1:10 PM PROFESSOR OF INDUSTRIAL TECHNOLOGY - 5 11:59 PM PROFESSOR OF INDUSTRIAL TECHNOLOGY Hospital Encounter [facility] [address] [place] [address] Discharge Disposition: Discharge to home or self care 5 11:40 AM PROFESSOR OF INDUSTRIAL TECHNOLOGY Office Visit [facility] Department of Otolaryngology Head-Neck Division [address] [place] [phone] Shravan Rod MD Thyroid nodule (Primary Dx); Malignant neoplasm of thyroid gland (HCC) from Last 3 Months Immunizations Immunization Administration Dates Next Due Influenza, Quadrivalent, Spl it, Preservative Free, Intramuscular 05/12/2021 Surgical History Surgery Date Site/Laterality Comments HYSTERECTOMY NECK SURGERY HYSTEROSCOPY DILATION AND CURETTAGE OF UTERUS COLONOSCOPY Medical History Medical History Date Comments Hypercholesteremia Diabetes mellitus (HCC) GERD (gastroesophageal reflux disease) Asthma Arthritis Lesion of stomach Social History Tobacco Use Types Packs/Day Years Used Date Smoking Tobacco: Never Smokeless Tobacco: Never Tobacco Cessation:Counseling Given: Not Answered AUDIT-C Answer Date Recorded Q1: How often [...] on file Legal Sex Female 4:41 PM PROFESSOR OF INDUSTRIAL TECHNOLOGY Gender Identity Not on file Sexual Orientation Not on file Obstetrics History Para Term AB IAB SAB Ectopic Multiple Livin g Live Births 1 1 Date Outcome GA Total Labor Labor/2nd/3rd Weight Sex Type Anes PTL Valentina A1 A5 Name Clin AB Last Filed Vital Signs Vital Sign Reading Time Taken Comments Blood Pressure 131/82 09/04/2024 12:29 PM PROFESSOR OF INDUSTRIAL TECHNOLOGY Pulse 73 09/04/2024 12:29 PM PROFESSOR OF INDUSTRIAL TECHNOLOGY Temperature 36.1 C (97 F) 09/04/2024 11:59 AM PROFESSOR OF INDUSTRIAL TECHNOLOGY Respiratory Rate 18 09/04/2024 12:29 PM PROFESSOR OF INDUSTRIAL TECHNOLOGY Oxygen Saturation 99% 09/04/2024 12:29 PM PROFESSOR OF INDUSTRIAL TECHNOLOGY Inhaled Oxygen Concentration - - Weight 109.3 kg (241 lb) 09/04/2024 11:12 AM PROFESSOR OF INDUSTRIAL TECHNOLOGY Height 175.3 cm (5' 9 ) 09/04/2024 11:12 AM PROFESSOR OF INDUSTRIAL TECHNOLOGY Body Mass Index 35.59 09/04/2024 11:12 AM PROFESSOR OF INDUSTRIAL TECHNOLOGY Plan of Treatment Health Maintenance Due Date Last Done Comments Breast Cancer Screening-Mammogram 1965 Colon Cancer Screening-Colonoscopy 1965 Depression Screening 1965 Hepatitis C Screening 1965 DTaP/Tdap/Td Vaccine (1 - Tdap) 10/12/1974 Hepatitis B Screening 10/12/1981 Regular Well Visit/Exam 18-64 10/12/1981 Pneumococcal vaccine <65 (1 of 2 - PCV) 10/12/1982 Zoster Vaccine (1 of 2) 10/12/1982 Covid-19 Vaccine (5 - 2023-2 5 season) 2024 11/01/2021, 06/20/2021, 11/01/2020, Additional history exists Influenza Vaccine (#1) 2024 05/12/2021 Procedures Procedure Name Priority Date/Time Associated Diagnosis Comments SURGICAL PATHOLOGY Routine 09/04/2024 11:37 AM PROFESSOR OF INDUSTRIAL TECHNOLOGY Lesion of stomach ENDO ADD ON ESOPHAGOGASTRODUODENOSCOPY REMOVAL SNARE Open Access 09/04/2024 11:27 AM PROFESSOR OF INDUSTRIAL TECHNOLOGY Lesion of stomach ESOPHAGOGASTRODUODENOSCOPY W ITH MUCOSAL RESECTION Open Access 09/04/2024 11:27 AM PROFESSOR OF INDUSTRIAL TECHNOLOGY Lesion of stomach EGD 09/04/2024 11:26 AM PROFESSOR OF INDUSTRIAL TECHNOLOGY POCT GLUCOSE DEVICE Routine 09/04/2024 11:15 AM PROFESSOR OF INDUSTRIAL TECHNOLOGY CYTOLOGY Routine 08/14/2024 1:05 PM PROFESSOR OF INDUSTRIAL TECHNOLOGY Thyroid nodule from Last 3 Months Results * Surgical pathology (09/04/2024 11:37 AM PROFESSOR OF INDUSTRIAL TECHNOLOGY) Tissue specimen (specimen) (Polyp(s), colon/colorectal, esophageal, gastric) 09/04/2024 11:37 AM PROFESSOR OF INDUSTRIAL TECHNOLOGY Narrative PATHOLOGY [facility] - 09/05/2024 11:37 AM PROFESSOR OF INDUSTRIAL TECHNOLOGY EPIC results best viewed via link to PDF [facility]anna Ch[facility] [place] [address] Note to Patients: This report may contain a detailed description of human tissue sent by a health care provider to the laboratory for pathologic evaluation. The content of this report is essential for diagnosis and may provide important critical findings. This information may be unfamiliar to patients to review without a medical professional present. It is advised that the patient review this report in the presence of a health care provider who can answer questions and explain the details. SURGICAL PATHOLOGY REPORT FINAL Patient Name: FELICITAS DAMON Gender: F : 1965 (Age: 58) Address: [address] [place], [place] [phone] Hospital #: [id number] Taken:09/04/2024 Received:09/04/2024 Reported: 09/05/2024 Patient Type: [facility] Service: Gastro Location: Physician(s): Sabrina Kamara M.D. Diagnosis: Stomach, polyps, biopsy and endoscopic mucosal resection - Fundic gland polyps. lns/09/05/2024 09:37 By this signature, I attest that the above diagnosis is based upon my personal examination of the slides(and/or other material indicated in the diagnosis). Tristen Felipe M.D. Report Electronically Reviewed and Signed Out By Tristen Felipe M.D. 09/05/2024 11:37:15 Johanna Hdz D.O. History: The patient is a 58-year-old woman presenting with lesion of stomach. Operative procedure: Upper endoscopy with mucosal resection and removal snare. Specimen(s) Received: A: Gastric polyps hot snare x3 gastric polyps emrx2 Gross Description: Received in formalin, labeled with the patient s identifiers and gastric polyps EMR and consists of multiple mcgill to red polypoid fragment(s) of soft tissue measuring 2.0 x 1.9 x 1.3 cm in aggregate. A1 Two polypoid fragments, differentially inked along margin of resection (blue and green), serially sectioned A2 One polypoid fragment, inked blue along margin of resection, serially sectioned A3 Remaining tissue, filtered, stained with eosin Jar 0. sxst/09/04/2024 13:24 PA(s): Shivani Leary By this signature, I attest that the above diagnosis is based upon my personal examination of the slides(and/or other material). Addenda/Procedures The performance characteristics of some immunohistochemical stains, fluorescence in-situ hybridization tests and immunophenotyping by flow cytometry cited in this report (if any) were determined by the Surgical Pathology and Flow Cytometry Departments at [facility] as part of an ongoing quality control inspector program and in compliance with federally mandated regulations drawn from the Clinical Laboratory Improvement Act of 1988 (CLIA '88). Some of these tests rely on the use of analyte specific reagents and are subject to specific labeling requirements by the US Food and Drug Administration. Such diagnostic tests may only be performed in a facility that is certified by the Department of Health and Human Services as a high complexity laboratory under CLIA '88. The FDA has determined that such clearance or approval is not necessary. This test is used for clinical purposes. It should not be regarded as investigational or for research. Nevertheless, federal rules concerning the medical use of analyte specific reagents require that the following disclaimer be attached to the report: This test was developed and its performance characteristics determined by the Surgical Pathology and Flow Cytometry Departments of [facility]. It has not been cleared or approved by the U. S. Food and Drug Administration. IMAGES AND SCANNED DOCUMENTS, IF INCLUDED, ONLY VIEWABLE IN PDF VERSION OF REPORT us Charlene Wilson MD LAB PATHOLOGY ORDERABL ES Final Result PATHOLOGY [facility] 3rd Floor [place], [place] [phone] * EGD (09/04/2024 11:26 AM PROFESSOR OF INDUSTRIAL TECHNOLOGY) Anatomical Region Laterality Modality Other Narrative Procedure Note Charlene Wilson MD - 09/04/2024 11:26 AM CST GI ENDOSCOPY [facility] Patient Name: Felicitas Damon Procedure Date: 09/04/2024 11:26 AM Date of : 1965 Admit Type: Outpatient Age: 58 Gender: Female Attending MD: Charlene Wilson M.D. Room: [facility] ENDOSCOPY ROOM 3 Note Status: Finalized Procedure: Upper GI endoscopy Indications: Abnormal CT of the GI tract. Multiple polypoidlesions in the stomach Referring MD: Jorge Ratliff M.D. Providers: Charlene Wilson M.D. Medicines: Monitored Anesthesia Care Complications: No immediate complications. Estimated Blood Loss: Estimated blood loss: none. Procedure: Pre-Anesthesia Assessment: - Immediately prior to administration ofmedications, the patient was re-assessed for adequacy to receive sedatives. The benefits, risks, and alternatives to theprocedure and sedation were discussed and informed consentwas obtained. The scope was passed under direct vision. The GIF H190 [id number] endoscope was introducedthrough the mouth, and advanced to the second part of duodenum. The upper GI endoscopy was accomplished without difficulty. The patient tolerated the procedure well. Findings: The examined esophagus was normal. The duodenal bulb, first portion of the duodenum and second portionof the duodenum were normal. 10 mm sessile polyps were found on the greater curvature of thestomach. Preparations were made for mucosal resection. 2 mL of everlift was injected with adequate lift of the lesion from the muscularispropria. Snare mucosal resection with Alonzo net retrieval was performed.Resection and retrieval were complete. There was no bleeding during theprocedure. To close a defect after mucosal resection, one hemostatic clip was successfully placed (MR conditional). There was no bleeding at theend of the procedure. 12 mm sessile polyps were found on the greater curvature of thestomach. Preparations were made for mucosal resection. 2 mL of everlift was injected with adequate lift of the lesion from the muscularispropria. Snare mucosal resection with Alonzo net retrieval was performed.Resection and retrieval were complete. There was no bleeding during theprocedure. To close a defect after mucosal resection, one hemostatic clip was successfully placed (MR conditional). There was no bleeding at theend of the procedure. Smaller sessile polyps (> 10) are scattered in the gastric body. The largest three (5-7 mm) were resected with hot snare polyectomy. Impression: - Multiple sessile gastric polyps. The largest 3 polyps were resected (EMR) and retrieved Recommendation: - Await pathology results. Electronically Signed by Charlene Wilson M.D. Charlene Wilson M.D. 09/04/2024 11:51:12 AM . Number of Addenda: 0 Note Initiated On: 09/04/2024 11:26 AM us Charlene Wilson MD ENDOSCOPY PROCEDURES F inal Result * POCT glucose (09/04/2024 11:15 AM PROFESSOR OF INDUSTRIAL TECHNOLOGY) Glucose, POC 79 70 - 199 mg/dL Blood 09/04/2024 11:1 5 AM PROFESSOR OF INDUSTRIAL TECHNOLOGY 09/04/2024 11:15 AM PROFESSOR OF INDUSTRIAL TECHNOLOGY Charlene Wilson MD LAB POCT ORDERABLES - DEVICE Final Result [facility] [place] [address] * Cytology (08/14/2024 1:05 PM PROFESSOR OF INDUSTRIAL TECHNOLOGY) Fluid (Thyroid) 08/14/2024 1 :05 PM PROFESSOR OF INDUSTRIAL TECHNOLOGY 08/15/2024 1:37 PM PROFESSOR OF INDUSTRIAL TECHNOLOGY Narrative PATHOLOGY [facility] - 08/19/2024 11:21 AM PROFESSOR OF INDUSTRIAL TECHNOLOGY EPIC results best viewed via link to PDF [facility] [place] [address] Note to Patients: This report may contain a detailed description of human tissue sent by a health care provider to the laboratory for pathologic evaluation. The content of this report is essential for diagnosis and may provide important critical findings. This information may be unfamiliar to patients to review without a medical professional present. It is advised that the patient review this report in the presence of a health care provider who can answer questions and explain the details. CYTOPATHOLOGY REPORT FINAL WITH ADDENDUM Patient Name: FELICITAS DAMON Gender: F : 1965 (Age: 58) Address: [address] [place] [id number] Hospital #: [id number] Taken:08/14/2024 Received:08/15/2024 Reported: 08/19/2024 Patient Type: [facility] SPECIMEN Service: UNKNOWN Location: Physician(s): Shravan Rod M.D. FINAL DIAGNOSIS A. Thyroid, left lobe, ultrasound-guided fine needle aspiration: - Atypia of undetermined significance (see comment) Comments Cytology preparations show a moderately cellular population of epithelial cells with nuclear crowding and scattered microfollicles. Colloid is sparse. Marked cytologic atypia is not appreciated. A follicular neoplasm cannot be entirely excluded. As such, the diagnosis of atypia of undetermined significance is warranted. Afirma testing will be sent and the results will follow in an addendum. pamo/08/18/2024 08:03 By this signature, I attest that the above diagnosis is based upon my personal examination of the slides(and/or other material indicated in the diagnosis). Davis Salinas DO Report Electronically Reviewed and Signed Out By Davis Salinas DO 08/19/2024 11:21:03 Jennifer Bliss, PAIGE([facility]) Gross Description A. Thyroid, left lobe, ultrasound guided fine needle aspiration: 2 Pap stained smear(s) and 2 Diff-Quik stained smear(s). 1 ThinPrep prepared from needle rinse tube. Aspirated by clinician. (tcg) Material for Afirma was collected, and testing will be performed, if indicated. Clinical Diagnosis and History The patient is a 58-year-old woman with a left thyroid nodule. Addenda/Procedures Addendum Ordered:09/01/2024Status:Signed OutAddendum Complete:09/01/2024y:Davis Salinas DOAddendum Signed Out:09/01/2024 Addendum Comment A digital scan of the original reference lab report will begin on page two of this addendum. By this signature, I attest that the above diagnosis is based upon my personal examination of the slides(and/or other material indicated in the diagnosis). Davis Salinas DOReport Electronically Reviewed and Signed Out By Davis Salinas DO 09/01/2024 10:14:15 REPORT IMAGES AND SCANNED DOCUMENTS, IF INCLUDED, ONLY VIEWABLE IN PDF VERSION OF REPORT The performance characteristics of some immunohistochemical stains, in-situ hybridization and fluorescence in-situ hybridization tests and immunophenotyping by flow cytometry cited in this report (if any) were determined by the Surgical Pathology and Flow Cytometry Departments at [facility] as part of an ongoing quality control inspector program and in compliance with federally mandated regulations drawn from the Clinical Laboratory Improvement Act of 1988 (CLIA '88). Some of these tests rely on the use of analyte specific reagents and are subject to specific labeling requirements by the US Food and Drug Administration. Such diagnostic tests may only be performed in a facility that is certified by the Department of Health and Human Services as a high complexity laboratory under CLIA '88. The FDA has determined that such clearance or approval is not necessary. This test is used for clinical purposes. It should not be regarded as investigational or for research. Nevertheless, federal rules concerning the medical use of analyte specific reagents require that the following disclaimer be attached to the report: This test was developed and its performance characteristics determined by the Surgical Pathology and Flow Cytometry Departments of [facility]. It has not been cleared or approved by the U. S. Food and Drug Administration. Shravan Rod MD LAB CYTOLOGY ORDER MIREYA Final Result PATHOLOGY [facility] 3rd Floor [place], [place] [phone] from Last 3 Months Insurance [facility] FED[employer]AL [facility] [employer] Care Teams Barrel Polisher Relationship Specialty Start Date End Date Genaro Garcia MD PCP - General Family Practice 12/13/22 Js Moser MD [address] [facility] [address] [facility] [address] [place] [address] Referring Physician Obstetrics and Gynecology 04/16/23
--- OUTSIDE RECORDS SUMMARY | 2024-11-12 10:55 | XMS_ITS | Referral Summary ---
Author Organization [facility] Address [address] [facility] [address] [place] [address] Phone Care Team Providers Care Speech Pathology Supervisor Name Role Phone Genaro Garcia MD Primary Care Provider [phone] Js Moser MD Unavailable Encounters Date Type Department Care Team Description 5 Results Follow-Up [facility] Gastroenterology [address] [place] [address] Advanced Medicine 12th [place] [address] [place] [address] November, Alexia Grant RN 5 11:26 AM MANUFACTURING EXECUTIVE Anesthesia Event [address] [address] Michelle Rodriguez MD Dodd, Gwendolyn L., ROUTE DELIVERY CLERK 5 12:00 PM MANUFACTURING EXECUTIVE - 5 12:30 PM MANUFACTURING EXECUTIVE Surgery [facility] Digestive Disease [address] [address] Charlene Wilson MD ESOPHAGOGASTRODUODENOSCOPY WITH MUCOSAL RESECTION 5 11:01 AM MANUFACTURING EXECUTIVE - 5 1:05 PM MANUFACTURING EXECUTIVE Hospital Encounter [facility] Disease [address] [address] Charlene Wilson MD Lesion of stomach Discharge Disposition: Discharge to home or self care 5 Orders Only [facility] Department of Otolaryngology Head-Neck Division [address] [facility] Floor 5 [place] [address] Shravan Rod MD Thyroid nodule (Primary Dx) 5 Telephone [facility] Department of Otolaryngology Head-Neck Division [address] [place] [address] 5 [place] [address] Janet Hollis, JOSE L 5 Telephone [facility] Specialty Services [address] [place] [phone] Fabby De Souza RN 5 Telephone [facility] Specialty Services [address] [place] [phone] Fabby De Souza, JOSE L GI PROCEDURE 7 DAY PRE CALL 5 Telephone [facility] Specialty Services [address] [place] [phone] Miscellaneous , Not In File 5 Telephone [facility] Department of Otolaryngology Head-Neck Division [address] [place] [phone] Janet Hollis RN 5 Telephone [facility] ([facility] ENT [address] [address] 11th [place] [address] [place] [phone] Venus Mejía, 5 Telephone [facility] Specialty Services [address] [place] [phone] Selin Dye RN GI Preprocedure 5 Orders Only [facility] Obstetrics and Gynecology [address] [place] [address] Medicine 13th [place] [address] [place] [phone] Lesly Jackson RN Lesion of stomach (Primary Dx) 5 9:20 AM MANUFACTURING EXECUTIVE Office Visit [facility] Obstetrics and Gynecology [address] [place] [address] Advanced Medicine 13th [place] [phone] Jorge Ratliff MD Uterine cancer, sarcoma (HCC) (Primary Dx); Use of megestrol acetate (Megace) 5 Orders Only [facility] [address] [place] [address] Shravan Rod MD Thyroid nodule 5 1:10 PM MANUFACTURING EXECUTIVE - 5 11:59 PM MANUFACTURING EXECUTIVE Hospital Encounter [facility] [address] [place] [address] Discharge Disposition: Discharge to home or self care 5 11:40 AM MANUFACTURING EXECUTIVE Office Visit [facility] Department of Otolaryngology Head-Neck Division [address] [facility] Floor 5 [place] [address] Shravan Rod MD Thyroid nodule (Primary Dx); Malignant neoplasm of thyroid gland (HCC) from Last 3 Months Allergies No known active allergies Medications allopurinoL [...] Numbness of foot 01/04/2022 Wears glasses 01/04/2022 Immunizations Immunization Administration Dates Next Due Influenza, Quadrivalent, Spl it, Preservative Free, Intramuscular 05/12/2021 Social History Tobacco Use Types Packs/Day Years [...] on file Legal Sex Female 4:41 PM MANUFACTURING EXECUTIVE Gender Identity Not on file Sexual Orientation Not on file Last Filed Vital Signs Vital Sign Reading Time Taken Comments Blood Pressure 131/82 09/04/2024 12:29 PM MANUFACTURING EXECUTIVE Pulse 73 09/04/2024 12:29 PM MANUFACTURING EXECUTIVE Temperature 36.1 C (97 F) 09/04/2024 11:59 AM MANUFACTURING EXECUTIVE Respiratory Rate 18 09/04/2024 12:29 PM MANUFACTURING EXECUTIVE Oxygen Saturation 99% 09/04/2024 12:29 PM MANUFACTURING EXECUTIVE Inhaled Oxygen Concentration - - Weight 109.3 kg (241 lb) 09/04/2024 11:12 AM MANUFACTURING EXECUTIVE Height 175.3 cm (5' 9 ) 09/04/2024 11:12 AM MANUFACTURING EXECUTIVE Body Mass Index 35.59 09/04/2024 11:12 AM MANUFACTURING EXECUTIVE Plan of Treatment Not on file Procedures Procedure Name Priority Date/Time Associated Diagnosis Comments SURGICAL PATHOLOGY Routine 09/04/2024 11:37 AM MANUFACTURING EXECUTIVE Lesion of stomach ENDO ADD ON ESOPHAGOGASTRODUODENOSCOPY REMOVAL SNARE Open Access 09/04/2024 11:27 AM MANUFACTURING EXECUTIVE Lesion of stomach ESOPHAGOGASTRODUODENOSCOPY W ITH MUCOSAL RESECTION Open Access 09/04/2024 11:27 AM MANUFACTURING EXECUTIVE Lesion of stomach EGD 09/04/2024 11:26 AM MANUFACTURING EXECUTIVE POCT GLUCOSE DEVICE Routine 09/04/2024 11:15 AM MANUFACTURING EXECUTIVE CYTOLOGY Routine 08/14/2024 1:05 PM MANUFACTURING EXECUTIVE Thyroid nodule from Last 3 Months Results * Surgical pathology (09/04/2024 11:37 AM MANUFACTURING EXECUTIVE) Tissue specimen (specimen) (Polyp(s), colon/colorectal, esophageal, gastric) 09/04/2024 11:37 AM MANUFACTURING EXECUTIVE Narrative PATHOLOGY [facility] - 09/05/2024 11:37 AM MANUFACTURING EXECUTIVE EPIC results best viewed via link to PDF [facility]anna Chavez Laboratory [place] [address] Note to Patients: This report may contain [...] Gender: F : 1965 (Age: 58) Address: [address] [address] [place] [address] Hospital #: [id number] Taken:09/04/2024 Received:09/04/2024 Reported: 09/05/2024 Patient Type: [facility] Service: Gastro Location: Physician(s): Charlene Wilson M.D. Genaro Garcia M.D. Diagnosis: Stomach, polyps, biopsy and endoscopic mucosal resection - Fundic gland polyps. lns09/05/2024 09:37 By this signature, I attest that [...] Surgical Pathology and Flow Cytometry Departments at [facility] as part of an ongoing quality system manager program and in compliance with federally mandated [...] Surgical Pathology and Flow Cytometry Departments of [facility]. It has not been cleared or approved by the U. S. Food and Drug Administration. IMAGES AND SCANNED DOCUMENTS, IF INCLUDED, ONLY VIEWABLE IN PDF VERSION OF REPORT us Charlene Wilson MD LAB PATHOLOGY ORDERABL ES Final Result PATHOLOGY [facility] 3rd Floor [place], [place] [phone] * EGD (09/04/2024 11:26 AM MANUFACTURING EXECUTIVE) Anatomical Region Laterality Modality Other Narrative Procedure Note Charlene Wilson MD - 09/04/2024 11:26 AM CST GI ENDOSCOPY [facility] Patient Name: Felicitas Damon Procedure Date: 09/04/2024 11:26 AM Date of : 1965 Admit Type: Outpatient Age: 58 Gender: Female Attending MD: Charlene Wilson M.D. Room: [facility] ENDOSCOPY ROOM 3 Note Status: Finalized [...] passed under direct vision. The GIF [id number] endoscope was introducedthrough the mouth, and advanced [...] from the muscularispropria. Snare mucosal resection with Aolnzo net retrieval was performed.Resection and retrieval were [...] 0 Note Initiated On: 09/04/2024 11:26 AM Charlene Wilson MD ENDOSCOPY PROCEDURES F inal Result * POCT glucose (09/04/2024 11:15 AM MANUFACTURING EXECUTIVE) Glucose, POC 79 70 - 199 mg/dL Blood 09/04/2024 11:1 5 AM MANUFACTURING EXECUTIVE 09/04/2024 11:15 AM MANUFACTURING EXECUTIVE Charlene Wilson MD LAB POCT ORDERABLES - DEVICE Final Result Performing Organization Address City/State/[facility] Co de Phone Number [facility] Department [place] [address] * Cytology (08/14/2024 1:05 PM MANUFACTURING EXECUTIVE) Fluid (Thyroid) 08/14/2024 1 :05 PM MANUFACTURING EXECUTIVE 08/15/2024 1:37 PM MANUFACTURING EXECUTIVE Narrative PATHOLOGY [facility] - 08/19/2024 11:21 AM MANUFACTURING EXECUTIVE EPIC results best viewed via link to PDF [facility]anna Chavez Laboratory [place] [address] Note to Patients: This report may contain [...] Gender: F : 1965 (Age: 58) Address: [address] [place] [phone] [facility] #: [id number] Taken:08/14/2024 Received:08/15/2024 Reported: 08/19/2024 Patient Type: [facility] SPECIMEN Service: UNKNOWN Location: Physician(s): Shravan Rod [...] Davis Salinas DO 08/19/2024 11:21:03 Jennifer Bliss, PAIGE([facility]) Gross Description A. Thyroid, left lobe, ultrasound [...] Surgical Pathology and Flow Cytometry Departments at [facility] as part of an ongoing quality system manager program and in compliance with federally mandated [...] Surgical Pathology and Flow Cytometry Departments of [facility]. It has not been cleared or approved by the U. S. Food and Drug Administration. Shravan Rod MD LAB CYTOLOGY ORDER MIREYA Final Result PATHOLOGY [facility] 3rd Floor [place], [place] [phone] from Last 3 Months Insurance [facility] Care Teams Speech Pathology Supervisor Relationship Specialty Start Date End Date Genaro Garcia MD PCP - General Family Practice 12/13/22 Js Moser MD [address] [address] Referring Physician Obstetrics and Gynecology 04/16/23
--- OUTSIDE RECORDS SUMMARY | 2024-11-12 10:55 | XMS_ITS ---
Author Organization [facility] Address [address] [address] Phone Care Team Providers Care Hydrogen Braze Furnace Operator Name Role Phone Genaro Garcia MD Primary Care Provider [phone] Js Moser MD Unavailable [phone] Active Problems Problem Noted Date Diagnosed Date Lesion of stomach 08/20/2024 Use of megestrol acetate (Megace) 07/16/2023 Uterine cancer, sarcoma 09/18/2022 Arthritis 01/04/2022 Asthma 01/04/2022 Difficulty sleeping 01/04/2022 Gastroesophageal reflux disease 01/04/2022 Headache 01/04/2022 Joint pain 01/04/2022 Numbness of foot 01/04/2022 Wears glasses 01/04/2022 Current Treatment and Therapy Plans No current plan information found. Past Treatment and Therapy Plans No past plan information found. Lifetime Dose Tracking * Chemical Lifetime Dose Automatic Entry Manual Entr y DLP 8,108 mGycm 8,108 mGycm 0 mGycm
[2024-11-12 19:53] LABS: Hematocrit 42.8 % (37.0-47.0); Hemoglobin 13.1 g/dL (12.0-15.0); Mean Corpuscular HGB Conc 30.6 g/dl (32-36); Mean Corpuscular Hemoglobin 28.1 pg (26-34); Mean Corpuscular Volume 91.8 fl (80-100); Mean Platelet Volume 9.5 fl (7.4-10.4); Platelet Count Result 379 k/mm3 (150-375); Red Blood Count 4.66 M/mm3 (4.2-5.4); White Blood Count 8.2 K/mm3 (4.5-10.0)
[2024-11-12 20:10] LABS: Alanine Aminotransferase 14 U/L (6-35); Alkaline Phosphatase 86 U/L (38-126); Anion Gap 9 mmol/L (4-12); Aspartate Amino Transferase 65 U/L (14-36); Bilirubin,Total 0.5 mg/dL (0.2-1.3); Blood Urea Nitrogen 10 mg/dL (7-17); Calcium 8.8 mg/dL (8.4-10.2); Carbon Dioxide 28 mmol/L (22-30); Chloride 103 mmol/L (98-107); Cholesterol 187 mg/dL (0-200); Estimated Glomerular Filt Rate > 60; Glucose 71 mg/dL (65-110); HDL Direct 37 mg/dL; Potassium 3.5 mmol/L (3.4-5.0); Sodium 140 mmol/L (137-145); Triglycerides 58 mg/dL (<150)
[2024-11-12 20:13] LABS: Hemoglobin A1C 5.6 % (<5.7)
[2024-11-12 20:26] LABS: LDL Cholesterol Direct 124 mg/dL
[2024-11-12 20:51] LABS: Creatinine Urine 188.5 mg/dL
[2024-11-12 21:00] LABS: MALB Creatinine Ratio 4.4 mg/g (0-30); Microalbumin Urine Random 8.2 mg/L (0-16.7)
== END 2024-11-12 09:59 | disposition home or self-care (01) ==
LOC: ANHBWCLAB 10:00
PROVIDERS: PCP Family Medicine; Visit Provider Family Medicine
DX: Z00.00 Encounter for general adult medical examination without abnormal findings (principal); E11.9 Type 2 diabetes mellitus without complications; E78.5 Hyperlipidemia, unspecified
CPT/HCPCS: 36415; 80053; 80061; 82043; 83036; 85027

== ENCOUNTER 2025-01-23 09:49 | Outpatient (CLI) | payer BC, SELFPAY ==
--- NOTE | ~2025-01-23 | MM_ITS ---
EXAMINATION: MM screening michael BI w kvng HISTORY: Screening mammogram TECHNIQUE: Craniocaudal and mediolateral oblique 3-D tomosynthesis images were obtained and synthetic 2-D images were generated. CAD analysis was submitted and interpreted. COMPARISON: 01/22/2024, 01/19/2023, 01/20/2022 BREAST PARENCHYMAL COMPOSITION:Not Dense. The breasts are almost entirely fatty FINDINGS: No suspicious mass, calcification, or architectural distortion are identified in either david ast to suggest malignancy. There has been no suspicious interval change. IMPRESSION: No mammographic evidence of malignancy. Recommend routine screening mammography in one year. BI-RADS Category 1: Negative Reviewed, dictated and finalized at location .
== END 2025-01-23 09:50 | disposition home or self-care (01) ==
LOC: ANHIMG 09:54
PROVIDERS: PCP Family Medicine; Referring Provider Obstetrics & Gynecology Gynecologic Oncology; Visit Provider Family Medicine
DX: Z12.31 Encounter for screening mammogram for malignant neoplasm of breast (principal)
CPT/HCPCS: 77063; 77067

== ENCOUNTER 2025-04-02 14:37 | Outpatient (CLI) | payer BC, SELFPAY ==
--- OUTSIDE RECORDS SUMMARY | 2023-01-25 09:58 | XMS_ITS | Continuity of Care Document ---
Author Organization [facility] Address [address] [place] [address] Phone Care Team Providers Care Health Care Technician Name Role Phone Unavailable Unavailable Unavailable Allergies, Adverse Reactions, Alerts Substance Reaction Status Criticality No Known Allergies Active No Inform ation Medications Medication Instructions Dosage Effective Dates (start - stop) Status Comments allopurinol 100 mg tablet take 1 tablet by oral route every day at bed time - Active Colcrys 0.6 mg tablet take 2 tablet by oral route then 1 tablet po 1 hour later - Active diclofenac 1 % topical gel apply (2G) by topical route 2 times every day to the affected area(s) 2 G - Active metronidazole 0.75 % topical gel apply by topical route 2 times every day a thin layer to the affected area(s) in the morning and evening 0.00 - Active cyclobenzaprine 10 mg tablet take 1 tablet by oral route 3 times every day 10 MG - Active hydrochlorothiazide 25 mg tablet TAKE 1 TABLET BY MOUTH ONE TIME A DAY - Active Flovent HFA 44 mcg/actuation aerosol inhaler inhale 2 puff by inhalation route 2 times every day - Active ProAir HFA 90 mcg/actuation aerosol inhaler inhale 2 puff by inhalation route every 4 - 6 hours as needed - Active Prilosec OTC 20 mg tablet,delayed release 1 capsule by oral route every day - Active Fish Oil 1,000 mg (120 mg-180 mg) capsule 1 capsule daily - Active OTC aspirin 81 mg tablet,delayed release take 1 tablet by oral route every day 81 MG - Active OTC Procedures Procedure Date Office/outpatient visit est Pain Severity Quatified;pain Present Aug E/M service NEC Office/outpatient visit est BODY MASS INDEX, DOCUMENTED Pain Severity Quatified;pain Present May Syst bp lt 130 mm hg Diast bp <80 mm hg Rapid Influenza Office/outpatient visit,est, mod 2018 Syst bp lt 130 mm hg Diast bp <80 mm hg BODY MASS INDEX, DOCUMENTED Pain Severity Quatified;pain Present November Rapid Influenza Revw Of All Rx By Prescribing Practition er Rx List Documented In Medical Record Aug Office/outpatient visit est Syst bp lt 130 mm hg Diast bp 80-89 mm hg BODY MASS INDEX, DOCUMENTED Airway inhalation treatment Albuterol Unit Dose, 1mg Revw Of All Rx By Prescribing Practition er Rx List Documented In Medical Record Jul Office/outpatient visit est Syst bp lt 130 mm hg Diast bp 80-89 mm hg BODY MASS INDEX, DOCUMENTED Office/outpatient visit est Syst bp ge 130 - 139mm hg Diast bp 80-89 mm hg Office/outpatient visit est Syst bp lt 130 mm hg Diast bp 80-89 mm hg Advance Directives Directive Yes / No Effective Date File Name No Information Encounters Encounter Description Practice Location Reason(s) For Visit Diagnoses Date Provider Providers Copied on Encounter [facility], [address], [place], [place], [id number] , [place] tel:[phone] [facility] Internal Medicine No Information 3 No Information [facility], [address], [place], [place], [id number] , [place] tel: [phone] [facility] Internal Medicine No Information 1 No Information Office/outpa tient visit [facility], [address], [place], [place], [id number] , [place] tel: [phone] [facility] est care (chief complaint) cpe (chief complaint) Type 2 diabetes mellitus with hyperlipidemiaGo uty arthropathy, unspecifiedModer ate persistent asthma, unspecified whether complicatedRouti ne physical examinationLow back pain without sciatica, unspecified back pain laterality, unspecified chronicityBody mass index (BMI) 40.0-44.9, adult 1 No Information [facility], [address], [place], [place], [id number] , [place] tel: [phone] [facility] Internal Medicine No Information 1 No Information [facility], [address], [place], [place], [id number] , [place] tel: [phone] [facility] Internal Medicine No Information 0 No Information Office/outpa tient visit [facility], [address], [place], [place], [id number] , [place] tel: [phone] [facility] Internal Medicine stomach flu (chief complaint) Viral syndromeBody mass index (BMI) 40.0-44.9, adultType 2 diabetes mellitus with hyperlipidemia 9 No Information Office/outpa tient visit,est, mod [facility], [address], [place], [place], [id number] , [place] tel: [phone] [facility] Internal Medicine abdominal pain (chief complaint) Type 2 diabetes mellitus with hyperlipidemiaGa stroenteritisBod y mass index (BMI) 40.0-44.9, adult 9 No Information Office/outpa tient visit [facility], [address], [place], [place], [id number] , [place] tel: [phone] [facility] Internal Medicine Cough (chief complaint) Wheezing without diagnosis of asthmaImpacted cerumen of left earRecurrent dry coughBody mass index (BMI) 40.0-44.9, adultUpper respiratory tract infection, unspecified typeModerate persistent asthma, unspecified whether complicated 9 No Information Office/outpa tient visit est [facility], [address], [place], [place], [id number] , tel: [phone] [facility] Internal Medicine rash (chief complaint) DermatitisBody mass index (BMI) 40.0-44.9, adult 9 Kimberly Licea. [address], [address], [place]. tel:[phone] Office/outpa tient visit est [facility], [address], [place], [place], [id number] , tel: [phone] [facility] Internal Medicine Cryo (chief complaint) Type 2 diabetes mellitus with hyperlipidemiaWa rt of faceHeel spur, leftPerforation of left tympanic membrane 8 No Information [facility], [address], [place], [place], [id number] , tel: [phone] [facility] Internal Medicine Encounter for screening mammogram for cancer of breast 8 No Information Office/outpa tient visit [facility], [address], [place], [place], [id number] , tel: [phone] [facility] Internal Medicine Establish Care (chief complaint) Type 2 diabetes mellitus with hyperlipidemiaHe el spur, leftWart of face 8 No Information Family History Family Member Type Diagnosis Age At Onset Mother Problem Arthritis Mother Problem heart disease Father Problem Arthritis Father Problem prostate cancer, heart disea se, gout Payers Payer name Insurance type Covered democrat ID Authoriza tion(s) Blue Shield [facility] [place] P[place] BL [id number] Blue Cross [facility] [place] PPO BL [id number] Social History Type Description Quantity Date Captured Comments Sex Female Smoking Status No Information Chief Complaint And Reason For Visit No Information Reason For Referral Reason For Referral No Information Plan Of Treatment Date Type Action Status Goal Colonoscopy. Due on 026 due Goal Depression scree gilberto. Due on due Goal HPV. Due on due Goal Zoster vaccine ( ). Due on due Goal Eye exam. Due on due Goal Td vaccine. Due on due Goal Influenza vaccine. Due on due Goal Pap/HPV testing. Due on due Goal H&P. Due on due Goal Advance Directive. Due on due Goal Tdap. Due on due Goal Influenza vaccine. Due on due Goal Tdap. Due on due Goal Advance Directive. Due on due Goal Zoster vaccine ( ). Due on due Goal H&P. Due on due Goal Td vaccine. Due on due Goal Depression scree gilberto. Due on due Goal Colonoscopy. Due on 026 due Goal Pap/HPV testing. Due on due Goal Eye exam. Due on due Goal Advance Directive. Due on due Goal Td vaccine. Due on due Goal Influenza vaccine. Due on due Goal Tdap. Due on due Goal Depression scree gilberto. Due on due Goal H&P. Due on due Goal Pap/HPV testing. Due on due Goal Colonoscopy. Due on due Goal Eye exam. Due on due Goal Colonoscopy. Due on due Goal Influenza vaccine. Due on due Goal H&P. Due on due Goal Tdap. Due on due Goal Advance Directive. Due on due Goal Depression scree gilberto. Due on due Goal Pap/HPV testing. Due on due Goal Td vaccine. Due on due Goal Advance Directive. Due on due Goal Tdap. Due on due Goal Colonoscopy. Due on due Goal H&P. Due on due Goal Pap/HPV testing. Due on due Goal Td vaccine. Due on due Goal Influenza vaccine. Due on due Goal Eye exam. Due on due Goal Depression scree gilberto. Due on due Goal Td vaccine. Due on 18 due Goal Advance Directive. Due on due Goal Tdap. Due on due Goal Depression scree gilberto. Due on due Goal H&P. Due on due Goal Influenza vaccine. Due on due Goal Pap/HPV testing. Due on due Goal Eye exam. Due on due Goal Colonoscopy. Due on 026 due Goal Depression scree gilberto. Due on due Goal Mammogram. Due on 8 due Goal Pap/HPV testing. Due on due Goal H&P. Due on due Goal Td vaccine. Due on 18 due Goal Colonoscopy. Due on 026 due Goal Eye exam. Due on due Goal Influenza vaccine. Due on due Goal Tdap. Due on due Goal Advance Directive. Due on due Referral Ordered: Mammography Screening Bilateral ordered Referral Ordered: Podiatry (related to Heel spur, left) ordered Referral Ordered: Referrals: Podiatry ordered Patient Education Cough: After Your Visit completed Patient Education ProAir HFA 90 mcg/actua tion aerosol i~ completed Patient Education Upper Respiratory Infec tion (Cold): A~ completed Patient Education Ear Wax Removal System 6.5 % drops completed Patient Education Earwax Blockage: After Your Visit completed Future Order: Lab Order URIC ACI D ([id number]), Sent on: Sent Future Order: Lab Order HEMOGLOB IN A1C ([id number]), Sent on: Sent Future Order: Lab Order Urinalys is, Routine ([id number]), Sent on: Sent Future Order: Lab Order Urine Cu lture, Routine ([id number]), Sent on: Sent Future Order: Lab Order Microalb /Creat Ratio, Randm Ur ([id number]), Sent on: Sent Future Order: Lab Order LIPID PA LETA ([id number]), Sent on: Sent Future Order: Lab Order CMP ([id number]), S ent on: Sent Future Order: Lab Order HEMOGLOB IN A1C ([id number]), Sent on: Sent Future Order: Lab Order LIPID PA LETA ([id number]), Sent on: Sent Future Order: Lab Order CMP ([id number]), S ent on: Sent History Of Present Illness Encounter Date Complaint History Of Prese nt Illness est care Pt has appt to r e est acre with Dr. Vera pt last seen in 2019. Pt would also like to discuss new dx of gout give to her by Dr. Coto, currently her (L) big toe is being affected. pt describes pain 3/10 currently however at night pain gets to 6/10. Pt states the pain is constant, pt is currently usinf Diclofenac gel to treat discomfort. Onset is 1 month ago. pt states recent uric acid level is 7.3 pt had blood work for Dr. Coto 3 weeks ago. Pt uses [facility] ... vgarcia cmamarried Jonathan Damon, retired [employer] employedno hx of smokingrare alcohol use no hx of drug usesx: pleomorphic lipoma removal, fibroid cyst removal fam hx: heart disease mother arthritis , father heart disease, prostate cancer, gout, arthritis Eye exam- September 02 [facility] Pap- 05/2020 normal Mammo- 09/02/2019 [facility]- 7 years ago pt states normal Tdap- due Influenza-. 04/2020 pt [facility] pt would like vaccine . Tele juvencio visit was conducted today due to the COVID 19 pandemic following current clinical guidelines.A virtual visit (VV) is an appointment with Audio/visual.A Telephone visit (TAV) is an appoint via telephone.At all times. patients are first offered VV appointments and default to TAV's if they don't have the technology that is necessary for a VV.A VV or TAV takes the place of an in office Face to Face appointment. cpe Pt here for Comp lete Physical Exam via doximity test connection obtainedplease use [phone]-----quest labDepression Screen: 0Eye exam- September 02 2020 [facility] Pap- 05/2020 normal Mammo- 09/02/2019 [facility]- 7 years ago pt states normal Tdap- due Influenza-. 04/2020 pt completed at [facility] pt would like vaccine . Tele juvencio visit was conducted today due to the COVID 19 pandemic following current clinical guidelines.A virtual visit (VV) is an appointment with Audio/visual.A Telephone visit (TAV) is an appoint via telephone.At all times. patients are first offered VV appointments and default to TAV's if they don't have the technology that is necessary for a VV.A VV or TAV takes the place of an in office Face to Face appointment. stomach flu Pt states sympto ms started Sunday night. Pt states mouth dryness no fever abdominal burning, on Sunday pt had N&V, DiarrheaPt states sinus drainage. per pt no other concern at this time abdominal pain Onset: 5 Days. T he severity of the problem is moderate. Pain scale: 3/10. The symptoms are intermittent. The location is epigastric. The quality of the pain is achy. Aggravating factors include bowel movement. Associated symptoms include diarrhea (frequency is 3-4x x5days), nausea and vomiting. Pertinent negatives include blood in stool. Additional information: per pt thinks got the stomach flu has had upset stomach since sunday w/ n/v/d x5 days per pt today has improved using otc immatrol and mylanta denies fever. Cough Onset: 6 days ag o. The patient describes the cough as dry and non-productive. The problem has become gradually worse. Context: Given inhalers in the past but not diagnosed with asthma. Symptoms are aggravated by lying down. Associated symptoms include cough, fatigue, hoarseness, nasal congestion, post-nasal drainage, sinus pressure, sore throat, wheezing and headache. Pertinent negatives include chills, dyspnea, dyspnea on exertion, fever, heartburn, hemoptysis, night sweats, pleuritic pain, rhinitis and rhinorrhea. The patient has a history of asthma. The patient does not have a history of allergies. Additional information: Taking Benzonatate and cough syrup w/codeine from a previous episode. Peak flows= 350 360, 350 L/min.-jaime montes No history of spirometry. Use of inhaler in the past, but she does not have one now. States symptoms reoccur since last year. rash The patient pres ents for rash. This episode began 2 days ago. The symptom(s) are described as occurs occasionally. Affected area(s) include face. The patient describes the affected area(s) as red and scaly. Relieving factors include antihistamines. Associated symptoms include erythema (skin) and scaling. Pertinent negatives include bleeding skin, cracking, crusting and painful rash. Additional information: Skin is red and itchy. pt took benadryl this AM w/o improvement. Cryo On left side of face and lab results, discomfort on left ear x2 weeks........................... (jaime watson) Establish Care Lab results, pt also c/o post nasal drainage............. (jaime watson) Functional Status Date Functional Assessmen t No Information Instructions Date Instruction Additional Infor herbert cyclobenzaprine 10 m g po qhs prn #30 5 RF. Related to Low back pain without sciatica, unspecified back pain laterality, unspecified chronicity Moving to [facility] Related to Routine physical examination continue present management. Rel ated to Moderate persistent asthma, unspecified whether complicated colcrys 0.6 mg 2 po x 1 dose and 1 po 1 hour later # 3.Allopurinol 100 mg po qhs x 1 yearuric acid 1 mo Related to Gouty arthropathy, unspecified A1C, CMP, lipids. UA , micro, reflex, MA/Cr ratio 1 mo w f/u Related to Type 2 diabetes mellitus with hyperlipidemia Increase omep to 2 qd x 3 daysRT C prn Related to Viral syndrome work on D&Eatorvasta tin 10 mg qd x 1 yearCMP, lipids, A1C 3 mo w f/u Related to Type 2 diabetes mellitus with hyperlipidemia cipro 500 mg bid x 7 d Related t o Gastroenteritis Follow up in 2-4 wee ks to reassess symptomsFlovent HFA Related to Moderate persistent asthma, unspecified whether complicated Education on URIIf n o improvement to symptoms return to clinic in two weeks Related to Upper respiratory tract infection, unspecified type Education on cough Related to Re current dry cough Albuterol Nebulizer treatmentEducation on how to use inhalerSpirometry Related to Wheezing without diagnosis of asthma Education on DebroxE ducation on Cerumen Impaction Related to Impacted cerumen of left ear Stop using new face products.Only wash your face with water and if necessary with a mild soap free from fragrances or chemicals.Avoid make up until rash is gone. Hydrocortisone ointment 1% TID to affected areas for 2 weeksClaritin 10mg po qd for 3 weeksReturn to office if s/s do not improve or worsen Related to Dermatitis Monitor Related to Perfo ration of left tympanic membrane cryod today Related to Wart of face f/b Dr. Pop Related to [place] l spur, left A1C, CMP, lipids,. 4 mo then f/u Related to Type 2 diabetes mellitus with hyperlipidemia order CMP, A1C, TSH, lipids, spot urine MA/Cr ratio, UA w reflex 2 weeksReturn to Clinic after labs 1 mo: double book Related to Type 2 diabetes mellitus with hyperlipidemia Refer to Dr. Pop Related t o Heel spur, left cry single lesion next visit Rel ated to Wart of face Assessments Type Assessment Date No Information Patient Care Teams Name Effective Dates (start - stop) Status Members No Information
--- OUTSIDE RECORDS SUMMARY | 2025-04-02 14:43 | XMS_ITS | Encounter Summary ---
Author Organization [facility] Address [address] [facility] [address] [place] [address] Phone Care Team Providers Care Ore Crushing Dust Collector Name Role Phone Js Moser MD Primary Care Provider [phone] Genaro Garcia MD Primary Care Provider [phone] Js Moser MD Unavailable [phone] Encounter Details Date Type Department Care Team (Latest Contact Info) Description 01/20/2022 Orders Only [facility] Jorge Ratliff MD [address] [facility] [phone] [place] [address] Social History Tobacco Use Types Packs/Day Years Used Date Smoking Tobacco: Unknown Comments Unknown Sex and Gender Information Value Date Recorded Sex Assigned at Not on file Legal Sex Female 4:41 PM [employer] Gender Identity Not on file Sexual Orientation [...] on filedocumented in this encounter Care Teams Ore Crushing Dust Collector Relationship Specialty Start Date End Date Js Moser MD [address] [place] [address] PCP - General Obstetrics and Gynecology 01/04/22 12/12/22 Genaro Garcia MD [address] [address] PCP - General Family Practice 12/13/22 Js Moser MD [address] [address] Referring Physician Obstetrics and Gynecology 04/16/23 documented as of this encounter
--- OUTSIDE RECORDS SUMMARY | 2025-04-02 14:43 | XMS_ITS ---
Author Organization [facility] Address [address] [address] Phone Care Team Providers Care Art Handler Name Role Phone Genaro Garcia MD Primary Care Provider [phone] Js Moser MD Unavailable [phone] Active Problems Problem Noted Date Diagnosed Date [...] Dose Automatic Entry Manual Entr y DLP 9,244 mGycm 9,244 mGycm 0 mGycm
--- OUTSIDE RECORDS SUMMARY | 2025-04-02 14:43 | XMS_ITS | Clinical Summary ---
Author Organization [facility] Address [address] [address] Phone Care Team Providers Care Meat Specialist Name Role Phone Genaro Garcia MD Primary Care Provider [phone] Js Moser MD Unavailable [phone] Allergies No known active allergies Medications allopurinoL (ZYLOPRIM) 100 mg tablet 2 Active hydroCHLOROthi azide (HYDRODIURIL) 25 mg tablet Take 1 tablet (25 mg total) by mouth daily 2 Active aspirin 81 mg chewable tablet Take 1 tablet (81 mg total) by mouth daily Active albuterol HFA (PROVENTIL HFA,VENTOLIN HFA,PROAIR HFA) 90 mcg/actuation inhaler INHALE 1 PUFF BY MOUTH EVERY 4 HOURS NEEDED FOR SHORTNESS OF BREATH AND FOR WHEEZING 3 Active cetirizine (ZyrTEC) 10 mg tablet Take by mouth daily as needed 3 Active omeprazole (PriLOSEC) 40 mg capsule Take 1 capsule (40 mg total) by mouth daily 3 Active Mounjaro 15 mg/0.5 mL pen injector INJECT 15 MG SUBCUTANEOUSLY ONCE A WEEK 4 Active triamcinolone (KENALOG) 0.1 % ointment APPLY TO RASH ON LEGS AND ARMS TWICE DAILY FOR 4 WEEKS FOR FLARES. THEN USE TWICE A WEEK FOR MAINTENANCE TO PREVENT RECURRENCES 5 Active doxepin (SINEquan) 10 mg capsule 5 Active megestroL (MEGACE) 40 mg tabletIndicati ons:Uterine cancer, sarcoma Take 2 tablets (80 mg total) by mouth 2 (two) times a day 120 tablet 1 Active Additional Information Patient taking differently: 40 mgoral 2 times daily, Reported on 02/23/2025 Active Problems Problem Noted Date Diagnosed Date Lesion of stomach 08/20/2024 Use of megestrol acetate (Megace) 07/16/2023 Uterine cancer, sarcoma 09/18/2022 Arthritis 01/04/2022 Asthma 01/04/2022 Difficulty sleeping 01/04/2022 Gastroesophageal reflux disease 01/04/2022 Headache 01/04/2022 Joint pain 01/04/2022 Numbness of foot 01/04/2022 Wears glasses 01/04/2022 Encounters Date Type Department Care Team Description 03/23/2025 Telephone [facility] Obstetrics and Gynecology [address] [facility] Medicine 13th [place] [address] Carolyn Fuller RN 03/23/2025 Orders Only [facility] Obstetrics and Gynecology [address] [facility] 13th [place] [address] Carolyn Fuller RN Uterine cancer, sarcoma (Primary Dx); Use of megestrol acetate (Megace) 02/23/2025 3:10 PM CDT Office Visit [facility] Obstetrics and Gynecology [address] [place] [address] 13th [place] [address] Jorge Ratliff MD Uterine cancer, sarcoma (HCC) (Primary Dx); Use of megestrol acetate (Megace) 02/18/2025 10:29 AM CDT - 02/18/2025 11:59 PM CDT Hospital Encounter [facility] [address] [place] [address] Jorge Ratliff MD Uterine cancer, sarcoma (HCC) Discharge Disposition: Discharge to home or self care from Last 3 Months Immunizations Immunization Administration [...] on file Legal Sex Female 4:41 PM 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 Gender Identity Not on file Sexual Orientation Not on file Obstetrics History Para Term AB IAB SAB Ectopic Multiple Livin g Live Births 1 1 Date Outcome GA Total Labor Labor/2nd/3rd Weight Sex Type Anes PTL Valentina A1 A5 Name Clin AB Last Filed Vital Signs Vital Sign Reading Time Taken Comments Blood Pressure 143/84 02/23/2025 3:55 PM CDT Pulse 84 02/23/2025 3:55 PM CDT Temperature 36.9 C (98.5 F) 02/23/2025 3:55 PM CDT Respiratory Rate 12 02/23/2025 3:55 PM CDT Oxygen Saturation 99% 02/23/2025 3:55 PM CDT Inhaled Oxygen Concentration - - Weight 110.9 kg (244 lb 8 oz) 02/23/2025 3:55 PM CDT Height 175.3 cm (5' 9.02) 11/24/2024 1:22 PM CD T Body Mass Index 36.09 11/24/2024 1:22 PM CDT Plan of Treatment Health Maintenance Due Date [...] 11/01/2020, Additional history exists Influenza Vaccine (#1) 2025 05/12/2021 Procedures Procedure Name Priority Date/Time Associated Diagnosis Comments CT CHEST ABDOMEN PELVIS W CONTRAST Schedule Routine, Read Routine (OP Routine) 02/18/2025 11:25 AM CDT Uterine cancer, sarcoma (HCC) from Last 3 Months Results * CT Chest Abdomen Pelvis W Contrast (02/18/2025 11:25 AM CDT) Anatomical Region Laterality Modality Body N/A Computed Tomogra phy 02/18/2025 12:0 8 PM CDT Impressions 02/18/2025 1:43 PM CDT No recurrent or metastatic disease in the chest, abdomen, or pelvis. Dictated by: Pallavi Hassan MD The radiology attending physician has personally reviewed this study, and had reviewed and/or edited this written report and agrees with it. Electronically signed by: Kate Mohr M.D. 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 COMPARISON: 08/11/2024, 02/04/2024, 07/10/2023, 12/17/2022 FINDINGS: Chest: No suspicious pulmonary nodule. Unchanged 3 mm nodule in the left lower lobe, series 3 image 65 from 03/19/2023, and likely benign. Unchanged 3 mm nodule in the right middle lobe, series 3 image 84, unchanged from 03/19/2023 and benign. No thoracic lymph adenopathy. Normal heart size. No pericardial effusion. Subcentimeter left thyroid nodules previously biopsied as atypia of undetermined significant. Abdomen/Pelvis: Normal liver, gallbladder, bile ducts, portal veins, spleen, pancreas, adrenal glands, and kidneys. Urinary bladder is normal. Hysterectomy. No adnexal mass. Endoscopic clips are seen in the gastric antrum, new from prior, pathologically proven as benign. No new polypoid lesion in the stomach. No bowel thickening or obstruction. Normal appendix. No abdominopelvic lymphadenopathy. No free fluid or free. Normal caliber abdominal aorta. No suspicious osseous lesion. Unchanged sclerotic lesions a left sacral ala and left iliac bone, likely bone islands. 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 COMPARISON: 08/11/2024, 02/04/2024, 07/10/2023, 12/17/2022 FINDINGS: Chest: No suspicious pulmonary nodule. Unchanged 3 mm nodule in the left lower lobe, series 3 image 65 from 03/19/2023, and likely benign. Unchanged 3 mm nodule in the right middle lobe, series 3 image 84, unchanged from 03/19/2023 and benign. No thoracic lymph adenopathy. Normal heart size. No pericardial effusion. Subcentimeter left thyroid nodules previously biopsied as atypia of undetermined significant. Abdomen/Pelvis: Normal liver, gallbladder, bile ducts, portal veins, spleen, pancreas, adrenal glands, and kidneys. Urinary bladder is normal. Hysterectomy. No adnexal mass. Endoscopic clips are seen in the gastric antrum, new from prior, pathologically proven as benign. No new polypoid lesion in the stomach. No bowel thickening or obstruction. Normal appendix. No abdominopelvic lymphadenopathy. No free fluid or free. Normal caliber abdominal aorta. No suspicious osseous lesion. Unchanged sclerotic lesions a left sacral ala and left iliac bone, likely bone islands. IMPRESSION: No recurrent or metastatic disease in the chest, abdomen, or pelvis. Dictated by: Pallavi Hassan MD The radiology attending physician has personally reviewed this study, and had reviewed and/or edited this written report and agrees with it. Electronically signed by: Kate Mohr M.D. [facility] Kd Ratliff MD IMG CT PROCEDURES Final Result from Last 3 Months Insurance [facility] [employer] [facility] [employer] Care Teams Meat Specialist Relationship Specialty Start Date End Date Genaro Garcia MD PCP - General Family Practice 12/13/22 Js Moser MD [address] [address] Referring Physician Obstetrics and Gynecology 9/18/23
[2025-04-02 18:52] LABS: Hematocrit 43.6 % (37.0-47.0); Hemoglobin 13.7 g/dL (12.0-15.0); Immature Granulocyte Percent A 0.3 % (0-0.5); Lymphocytes Absolute Auto 2.75 K/mm3 (0.9-3.2); Mean Corpuscular HGB Conc 31.4 g/dl (32-36); Mean Corpuscular Hemoglobin 29.0 pg (26-34); Mean Corpuscular Volume 92.2 fl (80-100); Nucleated Red Blood Cells Absolute Auto 0.000 K/mm3 (0.0-0.012); Nucleated Red Blood Cells Perc 0.0 % (0.0-0.2); Platelet Count Result 367 k/mm3 (150-375); Red Blood Count 4.73 M/mm3 (4.2-5.4); White Blood Count 9.8 K/mm3 (4.5-10.0)
[2025-04-02 19:04] LABS: Alanine Aminotransferase 18 U/L (6-35); Albumin Level 4.3 g/dL (3.5-5.1); Alkaline Phosphatase 85 U/L (38-126); Anion Gap 9 mmol/L (4-12); Aspartate Amino Transferase 53 U/L (14-36); Bilirubin,Total 0.5 mg/dL (0.2-1.3); Blood Urea Nitrogen 9 mg/dL (7-17); Calcium 9.4 mg/dL (8.4-10.2); Carbon Dioxide 27 mmol/L (22-30); Chloride 103 mmol/L (98-107); Estimated Glomerular Filt Rate > 60; Glucose 102 mg/dL (65-110); Potassium 3.4 mmol/L (3.4-5.0); Sodium 139 mmol/L (137-145); Total Protein 7.2 g/dL (6.3-8.2)
[2025-04-02 19:59] LABS: Vitamin B12 > 1000.0 pg/mL (239-931)
[2025-04-02 20:05] LABS: MALB Creatinine Ratio < 11.0 mg/g (0-30)
[2025-04-02 20:29] LABS: Hemoglobin A1C 5.7 % (<5.7)
== END 2025-04-02 14:38 | disposition home or self-care (01) ==
LOC: ANHBWCLAB 14:37
PROVIDERS: PCP Family Medicine; Visit Provider Family Medicine
DX: E78.5 Hyperlipidemia, unspecified (principal); E11.9 Type 2 diabetes mellitus without complications; E66.9 Obesity, unspecified; G47.00 Insomnia, unspecified; J45.909 Unspecified asthma, uncomplicated
CPT/HCPCS: 36415; 80053; 82043; 82172; 82306; 82607; 83036; 85025

== ENCOUNTER 2025-05-28 14:16 | Outpatient (CLI) | payer BC, SELFPAY ==
--- NOTE | ~2025-05-28 | DEXA_ITS ---
Bone Density Report Name: FELICITAS YATES Age: 59 Sex: Female Ethnicity: White Date of : 1965 Indication: postmenopausal; screening for osteoporosis; cancer; asthma or emphysema; hysterectomy; Referring Provider: BRYAN, DARYN [place] Study: Bone densitometry was performed. Exam Date: May 28, 2025 Accession number: [id number] Bone Density: Region BMD T-score Z-score Classification AP Spine(L1-L4) 0.982 -0.6 0.9 Normal Femoral Neck (Left) 0.620 -2.1 -0.7 Osteopenia Total Hip (Left) 0.831 -0.9 0.1 Normal Femoral Neck (Right) 0.671 -1.6 -0.3 Osteopenia Total Hip (Right) 0.865 -0.6 0.4 Normal Total Hip Mean 0.848 -0.8 0.3 Normal World Health Organization criteria for BMD impression classify patients as: Normal (T-score at or above -1.0), Osteopenia (T-score between -1.0 and -2.5), or Osteoporosis (T-score at or below -2.5). 10-year Fracture Risk(1): Major Osteoporotic Fracture 9.2% Hip Fracture 1.2% Reported Risk Factors: [place] (), Neck BMD=0.620, BMI=36.3 (1) FRAX(R) Version 3.08. Fracture probability calculated for an untreated patient. Fracture probability may be lower if the patient has received treatment. Previous Exams: -- Region Exam Age BMD T-score BMD Change BMD Change Date g/cm2 vs Baseline vs Previous -- AP Spine (L1-L4) 05/28/2025 59 0.982 -0.6 -16.3%# -16.3%# 01/20/2022 56 1.173 1.1 Total Hip(Left) 05/28/2025 59 0.831 -0.9 -15.6%* -15.6%* 01/20/2022 56 0.984 0.3 Total Hip(Right) 05/28/2025 59 0.865 -0.6 -14.8%# -14.8%# 01/20/2022 56 1.016 0.6 -- *Denotes significance at 95% confidence level, LSC for AP Spine = 0.022 g/cm2, LSC for Total Hip = 0.027 g/cm2 # Denotes dissimilar scan types or analysis methods Clinical Information Provided by Patient: Has used the following medications: Vitamin D Has the following medical conditions: Asthma or Emphysema, Cancer, Hysterectomy, uterine cancer Patient maximum height was 69 Menopause Age: 56 Drinks caffeinated beverages Onset of menses at age 11 Number of children 0 Impression: The patient has low bone mass, based on the Left Femoral Neck T-score. The patient has an estimated ten-year risk of hip fracture of 1.2% and an estimated ten-year risk of major fracture of 9.2%, based on the WHO FRAX algorithm. The BMD for the Total Hip(Left) decreased, changing by -15.6% since the last DXA exam. Discussion: BONE DENSITY IS LOW AT ONE OR MORE SKELETAL SITES. This patient's lowest T-score is low at one or more skeletal sites. It meets the World Health Organization's (WHO) criteria for ?low bone mass? (T-score between -1.0 and -2.5). The patient's 10-year risk of fracture as calculated by FRAX is less than the threshold where pharmacological therapy is recommended by the National Osteoporosis Foundation (NOF). However, all treatment decisions require clinical judgment and consideration of individual patient factors, including patient preferences, comorbidities, previous drug use, risk factors not captured in the FRAX model (e.g., frailty, falls, vitamin D deficiency, increased bone turnover, interval significant decline in bone density) and possible under or overestimation of fracture risk by FRAX. The patient should follow a healthful lifestyle (good nutrition with adequate calcium and vitamin D, and appropriate weight-bearing exercise). Follow-Up: Consider repeating this study in 2 years to reassess this patient's status, or sooner if there is some new clinical indication. Reported by: KRISTINE on 05/28/2025 2:41:00 PM. Reviewed, dictated and finalized at location A.
== END 2025-05-28 14:17 | disposition home or self-care (01) ==
LOC: MICIMG 14:17
PROVIDERS: PCP Family Medicine; Visit Provider Obstetrics & Gynecology Gynecologic Oncology
DX: M85.89 Other specified disorders of bone density and structure, multiple sites (principal); C54.9 Malignant neoplasm of corpus uteri, unspecified; Z79.818 Long term (current) use of other agents affecting estrogen receptors and estrogen levels; Z13.820 Encounter for screening for osteoporosis
CPT/HCPCS: 77080